=== PATIENT | female | born 1995 | race Caucasian/White ===

== ENCOUNTER 2016-11-14 17:42 | Outpatient (CLI) | payer OTHER ==
[2016-11-14 18:12] LABS: APPEARANCE,URINE TURBID; BILIRUBIN,URINE NEGATIVE (NEGATIVE); GLUCOSE, URINE NEGATIVE (NEGATIVE); KETONES,URINE 80 mg/dL (NEGATIVE); LEUKOCYTE ESTERASE,URINE MODERATE (NEGATIVE); NITRITE,URINE NEGATIVE (NEGATIVE); PROTEIN,URINE 30 mg/dL (NEGATIVE); URINE SPECIFIC GRAVITY 1.013; UROBILINOGEN,URINE NEGATIVE mg/dL (<2.0)
[2016-11-14] MEDS ORDERED: HYDROXYZINE PAMOATE 50 MG CAPSULE PO PRN (18:27)
[2016-11-14 18:31] LABS: URINE BARBITURATES SCREEN NEGATIVE; URINE METHADONE SCREEN NEGATIVE; URINE OPIATES LOW NEGATIVE; URINE PHENCYCLIDINE SCREEN NEGATIVE
--- NOTE | 2016-11-14 20:00 | L&D Flow Sheet ---
LD Flowsheet Datetime Report Generated by CPN: 11/14/2016 20:00 Datetime: 11/14/2016 19:45 NBP Sys/Safia/Mean (mmHg): 119 (QS system process) : 76 (QS system process) : 94 (QS system process) Pulse: 77 (QS system process) LaborFlag: Antepartum (QS system process) Datetime: 11/14/2016 19:44 Pain Scale: 3 (Adrienne Mishra, SARTHAK) Pain Presence: Intermittent (MIRYAM Marie Pain Type: Contraction (Adrienne Mishra RN) Pain Location: Abdomen; Back (Adrienne Mishra RN) Pain Relief Measures: Comfort Measures (Adrienne Mishra RN) Pain Coping: Talking Through Contractions; Breathing Through Contractions (Adrienne Mishra RN) LaborFlag: Antepartum (QS system process) Datetime: 11/14/2016 19:38 Patient Care Comments: Patient arrived back on unit from walking. States contractions are stronger and more frequent. Monitors applied (Adrienne Mishra RN) Datetime: 11/14/2016 19:05 Communication Comments[facility] until 1930. Will return for repeat SVE at that point. (Adrienne Mishra RN) Datetime: 11/14/2016 18:32 NBP Sys/Safia/Mean (mmHg): 119 (QS system process) : 68 (QS system process) : 86 (QS system process) Pulse: 80 (QS system process) Respirations: 16 (Shereen Senior RN) Monitor Mode: External; Palpation (Shereen Senior RN) Frequency (min): 2-5 (Shereen Senior RN) Quality: Mild/Moderate (Shereen Senior RN) Duration (sec): 50-70 (Shereen Senior RN) Resting Tone (Palpate): Relaxed (Shereen Senior RN) Monitor Mode: External US (Shereen Senior RN) FHR Baseline Rate : 135 (Shereen Senior RN) Variability: Moderate 6-25 bpm (Shereen Senior RN) Accelerations: 15X15 (Shereen Senior RN) Decelerations: None (Shereen Senior RN) Comments: Monitors removed, up to ambulate (Shereen Senior RN) LaborFlag: Antepartum (QS system process) Datetime: 11/14/2016 18:24 Communication Comments: Dr Galvez on phone. Report including pt complaints, FHR, UC pattern, SVE. Plan of care discussed. May d/c home if SVE unchanged w/ vistaril 50mg PO x 1 dose. (Shereen Senior RN) Datetime: 11/14/2016 18:20 Frequency (min): 5 (Shereen Senior RN) Pain Scale: 2 (Shereen Senior RN) Pain Presence: Intermittent (Shereen Senior RN) Pain Type: Contraction (Shereen Senior RN) Pain Location: Abdomen; Back (Shereen Senior RN) Pain Goal: 2 (Shereen Senior RN) Pain Relief Measures: Comfort Measures (Shereen Senior RN) Pain Coping: Breathing Through Contractions (Shereen Senior RN) Vaginal Bleeding: None (Shereen Senior RN) Breath Sounds, Left: Clear and Equal (Shereen Senior RN) Breath Sounds, Right: Clear and Equal (Shereen Senior RN) Nausea/Vomiting: Denies (Shereen Senior RN) RUQ Epigastric Pain: Denies (Shereen Senior RN) Instructional Method: Verbal; Patient Instructed; Family/Support Person Instructed; Verbalized Understanding (Shereen Senior RN) Plan of Care: Plan of Care Discussed (Shereen Senior RN) Unit Routine: [place] to Room; Call Vergara; Bed; Unit Personnel; Handwashing; Monitoring (Shereen Senior RN) LaborFlag: Antepartum (QS system process) Datetime: 11/14/2016 18:09 Dilatation (cm): 2.5 (Shereen Senior RN) Effacement (%): 90 (Shereen Senior, RN) Station: -2 (Shereen Senior, RN) Exam by: Sulma Senior RN (Shereen Senior, RN) Membrane Status: Bulging (Shereen Senior RN) Vaginal Bleeding: Normal Show (Shereen Senior, RN) Cervix, Consistency: Soft (Shereen Senior, RN) Cervix, Position: Anterior (Shereen Senior, RN) Datetime: 11/14/2016 18:02 NBP Sys/Safia/Mean (mmHg): 123 (QS system process) : 82 (QS system process) : 97 (QS system process) Pulse: 75 (QS system process) Respirations: 16 (Shereen Senior RN) Temperature (F): 97.9 (Shereen Senior RN) Temperature (C): 36.6 (QS system process) Temperature Route: Oral (Shereen Senior, SARTHAK) LaborFlag: Antepartum (QS system process) Datetime: 11/14/2016 18:00 Stage of : Antepartum (Shereen Senior RN)
[2016-11-14] MEDS ORDERED: ZOLPIDEM TARTRATE 5 MG TABLET PO ONE (20:03)
[2016-11-14] MEDS ORDERED: ZOLPIDEM TARTRATE 5 MG TABLET ONE (20:05)
== END 2016-11-14 20:12 | disposition home or self-care (01) ==
LOC: LC 17:42
PROVIDERS: ATTEND Specialist
PROC: 4A1HXCZ Monitoring of Products of Conception, Cardiac Rate, External Approach (ICD-10-PCS; principal; 2016-11-14)
DX: O47.1 False labor at or after 37 completed weeks of gestation (principal); Z3A.40 40 weeks gestation of pregnancy
CPT/HCPCS: 59025; 80307; 81005

== ENCOUNTER 2016-11-15 08:22 | Inpatient (IN) | payer OTHER ==
--- NOTE | 2016-11-15 08:31 | Non Stress Test Report ---
Non Stress Test Datetime Report Generated by CPN: 11/15/2016 08:30 DEMOGRAPHIC Test Number: 1 EGA NST: 40.6 INDICATION Indication for Study: Ordered by Provider VITAL SIGNS Temperature - NST: 97.9 Pulse - NST: 77 RESP - NST: 16 NBPSYS NST: 119 NBPDIA NST: 76 URINE RESULTS Urine Protein, NST: Negative Urine Ketones - NST: Negative Urine Glucose - NST: Negative Urine Blood - NST: Negative MONITORING Monitor Explained: Monitor Explained; Test Explained; Patient Verbalized Understanding Time on Monitor: 11/14/2016 19:37 Time off Monitor: 11/14/2016 20:00 NST Duration: 23 NST INTERVENTIONS NST Interventions: PO Hydration BABY A: [id number] BABY A Movement : Present Contraction Frequency : 1.5-3 FHR Baseline : 140 Accelerations : 15X15 Decelerations : None Variability : Moderate 6-25bpm NST Review: Meets Criteria for Reactive NST NST Review and Verified By : B. Ring RN NST Results: Reactive NST REPORT Report Trigger: Send Report
--- NOTE | 2016-11-15 08:54 | Non Stress Test Report ---
Non Stress Test Datetime Report Generated by CPN: 11/15/2016 08:53 DEMOGRAPHIC Test Number: 2 EGA NST: 41.0 INDICATION Indication for Study: Ordered by Provider Indication for Study (NST) Other: Contractions MONITORING Monitor Explained: Monitor Explained; Test Explained; Patient Verbalized Understanding Time on Monitor: 11/15/2016 08:36 Time off Monitor: 11/15/2016 08:56 NST Duration: 20 NST INTERVENTIONS NST Interventions: None Physician Notified NST: Dr Grant BABY A Movement : Present Contraction Frequency : 2 FHR Baseline : 135 Accelerations : 15X15 Decelerations : None Variability : Moderate 6-25bpm Variability : Moderate 6-25bpm NST Review: Meets Criteria for Reactive NST NST Review and Verified By : Stuart Mcclelland RN NST Results: Reactive NST REPORT Report Trigger: Send Report
[2016-11-15 09:16] LABS: APPEARANCE,URINE SLIGHTLY-CLOUDY; BILIRUBIN,URINE NEGATIVE (NEGATIVE); GLUCOSE, URINE NEGATIVE (NEGATIVE); KETONES,URINE 80 mg/dL (NEGATIVE); LEUKOCYTE ESTERASE,URINE TRACE (NEGATIVE); NITRITE,URINE NEGATIVE (NEGATIVE); PROTEIN,URINE 30 mg/dL (NEGATIVE); URINE SPECIFIC GRAVITY 1.015; UROBILINOGEN,URINE NEGATIVE mg/dL (<2.0)
[2016-11-15] MEDS ORDERED: NALBUPHINE HCL INJ 10 MG/1 ML AMPULE INJ ONE (09:25)
[2016-11-15] MEDS ORDERED: PROMETHAZINE HCL INJ 50 MG/1 ML VIAL IM ONE (09:27)
[2016-11-15 09:37] LABS: URINE BARBITURATES SCREEN NEGATIVE; URINE METHADONE SCREEN NEGATIVE; URINE OPIATES LOW NEGATIVE; URINE PHENCYCLIDINE SCREEN NEGATIVE
--- NOTE | 2016-11-15 10:01 | L&D Flow Sheet ---
LD Flowsheet Datetime Report Generated by CPN: 11/15/2016 10:00 Datetime: 11/15/2016 08:56 Monitor Mode: External (Janet Mcclelland RN) Frequency (min): 2-3 (Janet Mcclelland RN) Frequency (min): 2-3 (Shereen Senior RN) Quality: Mild/Moderate (Janet Mcclelland RN) Duration (sec): 50-100 (Janet Mcclelland RN) Resting Tone (Palpate): Relaxed (Janet Mcclelland RN) Monitor Mode: External US (Janet Mcclelland RN) FHR Baseline Rate : 140 (Janet Mcclelland RN) Variability: Moderate 6-25 bpm (Janet Mcclelland RN) Accelerations: 15X15 (Janet Mcclelland RN) Decelerations: None (Janet Mcclelland RN) Comments: Monitors removed (Shereen Senior RN) Pain Scale: 4 (Shereen Senior RN) Pain Presence: Intermittent (Shereen Parrish, RN) Pain Type: Contraction (Shereen Senior RN) Pain Location: Abdomen; Back (Shereen Senoir, RN) Pain Goal: 2 (Shereen Senior RN) Pain Relief Measures: Comfort Measures (Shereen Senior RN) Pain Coping: Breathing Through Contractions (Shereen Senior RN) Vaginal Bleeding: Small (Shereen Senior RN) Level of Consciousness: Fully Conscious (Shereen Senior RN) DTR's/Clonus: DTRs 1+; No Clonus (Shereen Senior RN) Headache: Denies (Shereen Senior RN) Breath Sounds, Left: Clear and Equal (Shereen Senior RN) Breath Sounds, Right: Clear and Equal (Shereen Senior, RN) Nausea/Vomiting: Present (Shereen Senior, RN) Patient Position/Activity: Birthing Ball (Shereen Senior, RN) Instructional Method: Verbal; Patient Instructed; Family/Support Person Instructed (Shereen Senior, RN) Plan of Care: Plan of Care Discussed; Labor (Shereen Senior, RN) Unit Routine: [place] to Room; Call Vergara; Bed; Unit Personnel; Handwashing; Monitoring (Shereen Senior, RN) Labor/Induction: Labor Stages (Shereen Senior RN) Pain Management: Comfort Measures (Shereen Senior RN) LaborFlag: Antepartum (QS system process) Datetime: 11/15/2016 08:37 Comments: Monitors applied, explained to pt. (Belinda Jennings, SARTHAK) Dilatation (cm): 2.5 (Belinda Jennings RN) Effacement (%): 100 (Belinda Jennings RN) Station: -2 (Belinda Jennings RN) Exam by: Michelle Jennings RN (Belinda Jennings RN) Cervix, Consistency: Soft (Belinda Jennings RN) Cervix, Position: Midposition (Belinda Jennings RN)
[2016-11-15] MEDS ORDERED: RINGERS SOLUTION,LACTATED 1,000 ML IV PRN (10:02)
[2016-11-15] MEDS ORDERED: PROMETHAZINE HCL INJ 25 MG/1 ML VIAL ONE (10:12)
[2016-11-15] MEDS ORDERED: NALBUPHINE HCL INJ 10 MG/1 ML AMPULE ONE ×2 (10:12→10:21)
[2016-11-15 10:43] LABS: ABSOLUTE MONOCYTES (AUTO) 0.6 10^3/uL (0.1-1.4); ABSOLUTE NEUT (AUTO) 9.5 10^3/uL (1.7-8.2); BASOPHILS % (AUTO) 0.2 % (0-2); EOSINOPHILS % (AUTO) 0.1 % (0-6); HEMATOCRIT 35.4 % (36.0-47.0); HEMOGLOBIN 12.1 g/dL (12.0-15.5); HGB HCT DIFFERENCE 0.9; LYMPHOCYTES % (AUTO) 8.6 % (13-45); MEAN CORPUSCULAR HEMOGLOBIN 31.5 pg (27.0-33.4); MEAN CORPUSCULAR HGB CONC 34.1 g/dL (32.0-36.0); MEAN CORPUSCULAR VOLUME 93 fl (80-97); MONOCYTES % (AUTO) 5.4 % (3-13); RED BLOOD COUNT 3.83 10^6/uL (3.72-5.28); RED CELL DISTRIBUTION WIDTH 15.1 % (11.5-14.0); SEGMENTED NEUTROPHILS % (AUTO) 85.7 % (42-78)
--- NOTE | 2016-11-15 12:02 | L&D Flow Sheet ---
LD Flowsheet Datetime Report Generated by CPN: 11/15/2016 12:00 Datetime: 11/15/2016 11:30 Monitor Mode: External; Palpation (Belinda Jennings RN) Frequency (min): 3.5-6 (Belinda Jennings, RN) Quality: Mild/Moderate (Belinda Jennings, RN) Duration (sec): 60-90 (Belinda Jennings, RN) Resting Tone (Palpate): Relaxed (Belinda Jennings, RN) Monitor Mode: External US (Belinda Jennings, RN) FHR Baseline Rate : 120 (Belinda Jennings, RN) Variability: Moderate 6-25 bpm (Belinda Jennings, RN) Accelerations: 15X15 (Belinda Jennings, RN) Decelerations: None (Belinda Jennings, RN) Datetime: 11/15/2016 11:00 Monitor Mode: External; Palpation (Belinda Jennings, RN) Frequency (min): 4-6 (Belinda Jennings, RN) Quality: Mild/Moderate (Belinda Jennings, RN) Duration (sec): 60-80 (Belinda Jennings, RN) Resting Tone (Palpate): Relaxed (Belinda Jennings, RN) Monitor Mode: External US (Belinda Jennings, RN) FHR Baseline Rate : 130 (Belinda Jennings, RN) Variability: Moderate 6-25 bpm (Belinda Jennings, RN) Accelerations: 15X15 (Belinda Jennings, RN) Decelerations: None (Belinda Jennings, RN) Datetime: 11/15/2016 10:30 Monitor Mode: External; Palpation (Belinda Jennings, RN) Frequency (min): 2-4 (Belinda Jennings, RN) Quality: Mild/Moderate (Belinda Jennings, RN) Duration (sec): 60-80 (Belinda Jennings, RN) Resting Tone (Palpate): Relaxed (Belinda Jennings, RN) Monitor Mode: External US (Belinda Jennings, RN) FHR Baseline Rate : 140 (Belinda Jennings, RN) Variability: Moderate 6-25 bpm (Belinda Jennings, RN) Accelerations: 15X15 (Belinda Jennings, RN) Decelerations: None (Belinda Jennings, RN) Datetime: 11/15/2016 10:21 Analgesics/Sedatives: Nubain (mg) @ 10 mg IV (Belinda Jennings RN) Antiemetics/Antacids: Phenergan IV (mg) @ 12.5 mg (Belinda Jennings RN) Datetime: 11/15/2016 10:11 NBP Sys/Safia/Mean (mmHg): 120 (QS system process) : 74 (QS system process) : 91 (QS system process) Pulse: 80 (QS system process) LaborFlag: Antepartum (QS system process)
[2016-11-15] MEDS ORDERED: FENTANYL CITRATE INJ/PF 100 MCG/2 ML AMPUL ONE (12:26)
[2016-11-15] MEDS ORDERED: BUPIVACAINE HCL 0.25 % INJ/PF (2.5 MG/1 ML) 30 ML VIAL ONE (12:27)
[2016-11-15] MEDS ORDERED: PHENYLEPHRINE HCL INJ/PF 10 MG/1 ML SDV ONE (12:27)
[2016-11-15] MEDS ORDERED: EPHEDRINE SULFATE INJ 50 MG/1 ML AMPULE ONE (12:27)
[2016-11-15] MEDS ORDERED: FENTANYL/BUPIVACAINE/NS/PF 200 MCG/100 ML RTUINJ EPI ONE (12:27)
[2016-11-15] MEDS ORDERED: FENTANYL/BUPIVACAINE/NS/PF 100 ML EPI PRN (12:30)
[2016-11-15] MEDS ORDERED: BUPIVACAINE HCL 0.25 % INJ/PF (2.5 MG/1 ML) 30 ML VIAL INFIL ONE (12:30)
--- NOTE | 2016-11-15 14:01 | L&D Flow Sheet ---
LD Flowsheet Datetime Report Generated by CPN: 11/15/2016 14:00 Datetime: 11/15/2016 13:58 NBP Sys/Safia/Mean (mmHg): 102 (QS system process) : 60 (QS system process) : 76 (QS system process) Pulse: 84 (QS system process) LaborFlag: Antepartum (QS system process) Datetime: 11/15/2016 13:55 NBP Sys/Safia/Mean (mmHg): 100 (QS system process) : 63 (QS system process) : 74 (QS system process) Pulse: 101 (QS system process) LaborFlag: Antepartum (QS system process) Datetime: 11/15/2016 13:50 NBP Sys/Safia/Mean (mmHg): 99 (QS system process) : 59 (QS system process) : 75 (QS system process) Pulse: 87 (QS system process) LaborFlag: Antepartum (QS system process) Datetime: 11/15/2016 13:44 NBP Sys/Safia/Mean (mmHg): 104 (QS system process) : 56 (QS system process) : 72 (QS system process) Pulse: 88 (QS system process) LaborFlag: Antepartum (QS system process) Datetime: 11/15/2016 13:38 NBP Sys/Safia/Mean (mmHg): 100 (QS system process) : 59 (QS system process) : 76 (QS system process) Pulse: 93 (QS system process) LaborFlag: Antepartum (QS system process) Datetime: 11/15/2016 13:33 NBP Sys/Safia/Mean (mmHg): 95 (QS system process) : 52 (QS system process) : 66 (QS system process) Pulse: 104 (QS system process) LaborFlag: Antepartum (QS system process) Datetime: 11/15/2016 13:30 NBP Sys/Safia/Mean (mmHg): 86 (QS system process) : 49 (QS system process) : 65 (QS system process) Pulse: 105 (QS system process) LaborFlag: Antepartum (QS system process) Datetime: 11/15/2016 13:23 NBP Sys/Safia/Mean (mmHg): 106 (QS system process) : 59 (QS system process) : 77 (QS system process) Pulse: 110 (QS system process) LaborFlag: Antepartum (QS system process) Datetime: 11/15/2016 13:21 NBP Sys/Safia/Mean (mmHg): 102 (QS system process) : 59 (QS system process) : 76 (QS system process) Pulse: 105 (QS system process) LaborFlag: Antepartum (QS system process) Datetime: 11/15/2016 13:20 Patient Care Comments: Pt. supine after epidural. (Belinda Jennings, RN) Datetime: 11/15/2016 13:19 NBP Sys/Safia/Mean (mmHg): 109 (QS system process) : 62 (QS system process) : 80 (QS system process) Pulse: 116 (QS system process) LaborFlag: Antepartum (QS system process) Datetime: 11/15/2016 13:18 Epidural Procedure Other: Pump Started (Belinda Jennings, RN) Datetime: 11/15/2016 13:17 NBP Sys/Safia/Mean (mmHg): 132 (QS system process) : 84 (QS system process) : 100 (QS system process) Pulse: 104 (QS system process) Epidural Procedure: Loading Dose (Belinda Jennings RN) LaborFlag: Antepartum (QS system process) Datetime: 11/15/2016 13:15 NBP Sys/Safia/Mean (mmHg): 135 (QS system process) : 77 (QS system process) : 101 (QS system process) Pulse: 83 (QS system process) LaborFlag: Antepartum (QS system process) Datetime: 11/15/2016 13:13 Pulse: 93 (QS system process) SpO2 (%): 99 (QS system process) Epidural Procedure: Test Dose (Janet Mcclelland RN) LaborFlag: Antepartum (QS system process) Datetime: 11/15/2016 13:12 Epidural Procedure: Cath Placed (Belinda Jennings, RN) Datetime: 11/15/2016 13:09 Procedure Verify: Correct Patient Identity; Accurate Procedure Consent Form; Agreement on Procedure to be Done; Correct Patient Position (Janet Mcclelland RN) Anesthesia Plans: Epidural (Janet Mcclelland RN) Epidural Positioning: Sitting (Janet Mcclelland RN) Anesthesia Comments: Dr. Jama at bedside (Janet Mcclelland RN) Datetime: 11/15/2016 13:08 Pulse: 92 (QS system process) SpO2 (%): 99 (QS system process) LaborFlag: Antepartum (QS system process) Datetime: 11/15/2016 13:04 IV/Blood Work: New IV Bag Hung (Janet Marlatt, RN) Patient Care Comments: patient sitting up for epidural (Janet Marlatt, RN) Datetime: 11/15/2016 12:20 IV/Blood Work: IV Bolus Started (Belinda Jennings, RN) Datetime: 11/15/2016 12:10 I/O Interventions: Up to BR (Belinda Jennings, RN) Datetime: 11/15/2016 12:05 Patient Position/Activity: Left Lateral (Belinda Jennings, RN) Datetime: 11/15/2016 12:04 Communication: RN at Bedside (Belinda Jennings RN) Datetime: 11/15/2016 12:00 Monitor Mode: External; Palpation (Belinda Jennings, RN) Frequency (min): 2-4 (Belinda Jennings, RN) Quality: Mild/Moderate (Belinda Jennings RN) Duration (sec): 60-90 (Belinda Jennings RN) Resting Tone (Palpate): Relaxed (Belinda Jennings RN) Monitor Mode: External US (Belinda Jennings RN) FHR Baseline Rate : 120 (Belinda Jennings RN) Variability: Moderate 6-25 bpm (Belinda Jennings RN) Accelerations: 15X15 (Belinda Jennings RN) Decelerations: None (Belinda Jennings RN)
--- NOTE | 2016-11-15 16:01 | L&D Flow Sheet ---
LD Flowsheet Datetime Report Generated by CPN: 11/15/2016 16:00 Datetime: 11/15/2016 15:50 NBP Sys/Safia/Mean (mmHg): 107 (QS system process) : 65 (QS system process) : 81 (QS system process) Pulse: 87 (QS system process) LaborFlag: Labor (QS system process) Datetime: 11/15/2016 15:45 Monitor Mode: External; Palpation (Belinda Jennings RN) Frequency (min): 2-5 (Belinda Jennings, RN) Quality: Moderate (Belinda Jennings, RN) Duration (sec): 60-90 (Belinda Jennings, RN) Resting Tone (Palpate): Relaxed (Belinda Jennings, RN) Monitor Mode: External US (Belinda Jennings, RN) FHR Baseline Rate : 135 (Belinda Jennings, RN) Variability: Moderate 6-25 bpm (Belindahalley Freitason, RN) Accelerations: 15X15 (Belinda Jennings, RN) Decelerations: None (Belinda Jeninngs, RN) Datetime: 11/15/2016 15:35 NBP Sys/Safia/Mean (mmHg): 111 (QS system process) : 64 (QS system process) : 81 (QS system process) Pulse: 78 (QS system process) LaborFlag: Labor (QS system process) Datetime: 11/15/2016 15:30 Monitor Mode: External; Palpation (Belinda Jennings, RN) Frequency (min): 6-7 (Belinda Jennings, RN) Quality: Moderate (Belinda Jennings, RN) Duration (sec): 80-110 (Belinda Jennings RN) Resting Tone (Palpate): Relaxed (Belinda Jennings RN) Monitor Mode: External US (Belinda Jennings RN) FHR Baseline Rate : 130 (Belinda Jennings RN) Variability: Minimal - Undetectable to <=5 bpm (Belinda Jennings, RN) Accelerations: 15X15 (Belinda Jennings, RN) Decelerations: Late (Belinda Jennings, RN) Datetime: 11/15/2016 15:20 NBP Sys/Safia/Mean (mmHg): 110 (QS system process) : 67 (QS system process) : 82 (QS system process) Pulse: 71 (QS system process) LaborFlag: Labor (QS system process) Datetime: 11/15/2016 15:15 Monitor Mode: External; Palpation (Shereen Senior RN) Frequency (min): 2-5 (Shereen Senior RN) Quality: Moderate (Shereen Senior RN) Duration (sec): 50-80 (Shereen Senior RN) Resting Tone (Palpate): Relaxed (Shereen Senior RN) Monitor Mode: External US (Shereen Senior RN) FHR Baseline Rate : 140 (Shereen Senior RN) Variability: Moderate 6-25 bpm (Shereen Senior RN) Decelerations: None (Shereen Senior RN) Patient Position/Activity: Right Lateral; Peanut Ball (Hafsa Soto RN) Datetime: 11/15/2016 15:05 NBP Sys/Safia/Mean (mmHg): 111 (QS system process) : 57 (QS system process) : 77 (QS system process) Pulse: 85 (QS system process) LaborFlag: Labor (QS system process) Datetime: 11/15/2016 15:00 Monitor Mode: External; Palpation (Shereen Senior RN) Frequency (min): 4-5 (Shereen Senior RN) Quality: Mild (Shereen Senior RN) Duration (sec): 50-70 (Shereen Senior RN) Resting Tone (Palpate): Relaxed (Shereen Senior RN) Monitor Mode: External US (Shereen Senior RN) FHR Baseline Rate : 140 (Shereen Parrish, RN) Variability: Moderate 6-25 bpm (Shereen Parrish, RN) Accelerations: 10X10 (Shereen Parrish, RN) Decelerations: None (Shereen Senior, RN) Datetime: 11/15/2016 14:56 Stage of : Labor (Shereen Parrish, RN) Datetime: 11/15/2016 14:49 NBP Sys/Safia/Mean (mmHg): 94 (QS system process) : 52 (QS system process) : 67 (QS system process) Pulse: 82 (QS system process) LaborFlag: Antepartum (QS system process) Datetime: 11/15/2016 14:45 Monitor Mode: External; Palpation (Shereen Parrish, RN) Frequency (min): 5-6 (Shereen Parrish, RN) Quality: Moderate (Shereen Parrish, RN) Duration (sec): 50-70 (Shereen Parrish, RN) Resting Tone (Palpate): Relaxed (Shereen Parrish, RN) Monitor Mode: External US (Shereen Parrish, RN) FHR Baseline Rate : 140 (Shereen Parrish, RN) Variability: Moderate 6-25 bpm (Shereen Parrish, RN) Decelerations: None (Shereen Parrish, RN) Datetime: 11/15/2016 14:34 NBP Sys/Safia/Mean (mmHg): 97 (QS system process) : 56 (QS system process) : 71 (QS system process) Pulse: 70 (QS system process) LaborFlag: Antepartum (QS system process) Datetime: 11/15/2016 14:30 Monitor Mode: External; Palpation (Shereen Parrish, RN) Frequency (min): 2-4 (Shereen Senior RN) Quality: Moderate (Shereen Senior, RN) Duration (sec): 50-70 (Shereen Senior RN) Resting Tone (Palpate): Relaxed (Shereen Senior RN) Monitor Mode: External US (Shereen Senior RN) FHR Baseline Rate : 140 (Shereen Senior, RN) Variability: Moderate 6-25 bpm (Shereen Senior RN) Decelerations: None (Shereen Senior RN) Datetime: 11/15/2016 14:19 NBP Sys/Safia/Mean (mmHg): 98 (QS system process) : 59 (QS system process) : 74 (QS system process) Pulse: 83 (QS system process) LaborFlag: Antepartum (QS system process) Datetime: 11/15/2016 14:15 Monitor Mode: External; Palpation (Shereen Senior RN) Frequency (min): 2-3 (Shereen Senior RN) Quality: Moderate (Shereen Senior RN) Duration (sec): 50-70 (Shereen Senior RN) Resting Tone (Palpate): Relaxed (Shereen Senior RN) Monitor Mode: External US (Shereen Senior RN) FHR Baseline Rate : 140 (Shereen Senior RN) Variability: Moderate 6-25 bpm (Shereen Senior RN) Accelerations: 10X10 (Shreeen Senior RN) Decelerations: None (Shereen Senior RN) Datetime: 11/15/2016 14:07 Dilatation (cm): 5.0 (Shereen Senior RN) Effacement (%): 100 (Shereen Senior RN) Station: -1 (Shereen Senior RN) Exam by: Dr Grant (Shereen Senior RN) Membrane Status: Ruptured (Shereen Senior RN) Membranes Ruptured Date/Time: 11/15/2016 14:07 (Shereen Senior RN) Membranes Rupture Method: Spontaneous (Shereen Senior RN) Amniotic Fluid Color: Clear (Shereen Senior RN) Amniotic Fluid Amount: Moderate (Shereen Senior RN) Amniotic Fluid Odor: Normal (Shereen Senior RN) Vaginal Bleeding: Normal Show (Shereen Senior RN) Cervix, Consistency: Soft (Shereen Senior RN) Cervix, Position: Anterior (Shereen Senior RN) Datetime: 11/15/2016 14:03 NBP Sys/Safia/Mean (mmHg): 113 (QS system process) : 71 (QS system process) : 86 (QS system process) Pulse: 89 (QS system process) LaborFlag: Antepartum (QS system process)
[2016-11-15] MEDS ORDERED: MAG HYDROX/AL HYDROX/SIMETH SUSP 30 ML UDCUP ONE (16:23)
[2016-11-15] MEDS ORDERED: OXYTOCIN/NORMAL SALINE 20 UNIT/1,000 ML RTUINJ ONE (16:23)
--- NOTE | 2016-11-15 18:01 | L&D Flow Sheet ---
LD Flowsheet Datetime Report Generated by CPN: 11/15/2016 18:00 Datetime: 11/15/2016 17:48 Temperature (F): 99.1 (Belinda Jennings, RN) Temperature (C): 37.3 (QS system process) LaborFlag: Labor (QS system process) Datetime: 11/15/2016 17:44 Pitocin (milliunit): Pitocin Increased to (milliunits) @ 8 (Belindahalley Jennings, RN) Datetime: 11/15/2016 17:35 NBP Sys/Safia/Mean (mmHg): 118 (QS system process) : 73 (QS system process) : 89 (QS system process) Pulse: 88 (QS system process) LaborFlag: Labor (QS system process) Datetime: 11/15/2016:19 NBP Sys/Safia/Mean (mmHg): 115 (QS system process) : 59 (QS system process) : 81 (QS system process) Pulse: 86 (QS system process) LaborFlag: Labor (QS system process) Datetime: 11/15/2016 17:17 Monitor Interventions for UA: [place] Adjusted (Misti Bolivar, RN) Datetime: 11/15/2016 17:16 Patient Position/Activity: Right Lateral; Peanut Ball (Shereen Senior RN) Datetime: 11/15/2016 17:15 Monitor Mode: External; Palpation (Shereen Senior RN) Frequency (min): 4-5 (Shereen Senior RN) Quality: Mild/Moderate (Shereen Senior RN) Duration (sec): 50-70 (Shereen Senior RN) Resting Tone (Palpate): Relaxed (Shereen Senior RN) Monitor Mode: External US (Shereen Senior RN) FHR Baseline Rate : 140 (Shereen Senior RN) Variability: Minimal - Undetectable to <=5 bpm (Shereen Senior RN) Decelerations: None (Shereen Senior RN) Pitocin (milliunit): Pitocin Increased to (milliunits) @ 6 (Shereen Senior RN) Datetime: 11/15/2016 17:04 NBP Sys/Safia/Mean (mmHg): 96 (QS system process) : 55 (QS system process) : 70 (QS system process) Pulse: 71 (QS system process) LaborFlag: Labor (QS system process) Datetime: 11/15/2016 17:00 Monitor Mode: External; Palpation (Shereen Senior RN) Frequency (min): 4-5 (Shereen Senior RN) Quality: Mild/Moderate (Shereen Senior RN) Duration (sec): 50-80 (Shereen Senior RN) Resting Tone (Palpate): Relaxed (Shereen Senior RN) Monitor Mode: External US (Shereen Senior RN) FHR Baseline Rate : 140 (Shereen Senior RN) Variability: Minimal - Undetectable to <=5 bpm (Shereen Senior RN) Decelerations: None (Shereen Senior RN) Pitocin (milliunit): Pitocin Remains (milliunits) @ 4 (Shereen Senior RN) Datetime: 11/15/2016 16:49 NBP Sys/Safia/Mean (mmHg): 97 (QS system process) : 54 (QS system process) : 70 (QS system process) Pulse: 76 (QS system process) LaborFlag: Labor (QS system process) Datetime: 11/15/2016 16:48 Pitocin (milliunit): Pitocin Increased to (milliunits) @ 4 (Belindahalley Jennings, RN) Datetime: 11/15/2016 16:45 Monitor Mode: External; Palpation (Shereenhillary Senior RN) Frequency (min): 4-6 (Shereen Senior RN) Quality: Mild/Moderate (Shereen Senior RN) Duration (sec): 50-70 (Shereen Senior RN) Resting Tone (Palpate): Relaxed (Shereen Senior RN) Monitor Mode: External US (Shereen Senior RN) FHR Baseline Rate : 140 (Shereen Senior RN) Variability: Moderate 6-25 bpm (Shereen Senior RN) Accelerations: 10X10 (Shereen Senior RN) Decelerations: None (Shereen Senior RN) Pitocin (milliunit): Pitocin Remains (milliunits) @ 4 (Shereen Senior RN) Datetime: 11/15/2016 16:35 NBP Sys/Safia/Mean (mmHg): 103 (QS system process) : 59 (QS system process) : 77 (QS system process) Pulse: 83 (QS system process) LaborFlag: Labor (QS system process) Datetime: 11/15/2016 16:33 Patient Position/Activity: Left Lateral; Peanut Ball (Shereen Parrish, RN) Datetime: 11/15/2016 16:30 Monitor Mode: External; Palpation (Belinda Jennings, SARTHAK) Frequency (min): 4-6 (Belinda Jennings, RN) Quality: Mild/Moderate (Belinda Jennings, RN) Duration (sec): 50-70 (Belinda Jennings, RN) Resting Tone (Palpate): Relaxed (Belinda Jennings, RN) Monitor Mode: External US (Belinda Jennings, RN) FHR Baseline Rate : 135 (Belinda Jennings, RN) Variability: Moderate 6-25 bpm (Belinda Jennings, RN) Accelerations: 15X15 (Belinda Jennings, RN) Decelerations: None (Belinda Jennings, RN) Pitocin (milliunit): Pitocin Started (milliunits) @ 2 (Belinda Jennings, RN) Datetime: 11/15/2016 16:19 NBP Sys/Safia/Mean (mmHg): 110 (QS system process) : 63 (QS system process) : 80 (QS system process) Pulse: 112 (QS system process) LaborFlag: Labor (QS system process) Datetime: 11/15/2016 16:15 Monitor Mode: External; Palpation (Belinda Jennings RN) Frequency (min): 5-6 (Belinda Jennings RN) Quality: Mild/Moderate (Belinda Jennings, RN) Duration (sec): 50-70 (Belinda Jennings, RN) Resting Tone (Palpate): Relaxed (Belinda Jennings, RN) Monitor Mode: External US (Belinda Jennings, RN) FHR Baseline Rate : 135 (Belinda Jennings, RN) Variability: Minimal - Undetectable to <=5 bpm (Belinda Jennings, RN) Accelerations: 10X10 (Belindahalley Jennings, RN) Decelerations: None (Belinda Michaela, RN) Datetime: 11/15/2016 16:04 NBP Sys/Safia/Mean (mmHg): 104 (QS system process) : 61 (QS system process) : 78 (QS system process) Pulse: 90 (QS system process) Temperature (F): 98.6 (Belinda Jennings RN) Temperature (C): 37.0 (QS system process) Temperature Route: Oral (Belinda Jennings RN) LaborFlag: Labor (QS system process) Datetime: 11/15/2016 16:00 Monitor Mode: External; Palpation (Belinda Jennings RN) Frequency (min): 4-5 (Belinda Jennings RN) Quality: Mild/Moderate (Belinda Jennings RN) Duration (sec): 50-70 (Belinda Jennings RN) Resting Tone (Palpate): Relaxed (Belinda Jennings RN) Monitor Mode: External US (Belinda Jennings RN) FHR Baseline Rate : 135 (Belinda Jennings RN) Variability: Moderate 6-25 bpm (Belinda Jennings RN) Accelerations: 15X15 (Belinda Jennings RN) Decelerations: None (Belinda Jennings RN)
--- NOTE | 2016-11-15 20:01 | L&D Flow Sheet ---
LD Flowsheet Datetime Report Generated by CPN: 11/15/2016 20:00 Datetime: 11/15/2016 19:47 Patient Position/Activity: [place]ow[place] (Virginia Ring, RN) Patient Care Comments: Pt states feeling the need to have a bowel movement. Bedpan provided. (Virginia Ring, RN) Datetime: 11/15/2016 19:36 Pitocin (milliunit): Pitocin Increased to (milliunits) @ 14 (Virginia Ring, RN) Datetime: 11/15/2016 19:34 Communication: Provider Orders Received; Call/Page Placed to Provider (Virginia Salgado, RN) Communication Comments: Call placed to Dr. Grant. Report to include SVE, temperature, toco data. Orders received to continue to increase pitocin by 2 miliunits/min every 15 minutes for a maximum of 20 miliunits/min of until adequate labor is established. (Virginia Ring, RN) Datetime: 11/15/2016 19:32 Patient Position/Activity: Left Lateral; Peanut Ball (Virginia Ring, RN) Datetime: 11/15/2016 19:30 Dilatation (cm): 6.0 (Virginia Ring, RN) Effacement (%): 100 (Virginia Ring, RN) Station: 0 (Virginia Ring, RN) Exam by: Michelle Jennings RN (Virginia Ring, RN) Cervix, Consistency: Soft (Virginia Ring, RN) Vaginal Exam Comments: Molding noted (Virginia Ring, RN) Datetime: 11/15/2016 19:28 NBP Sys/Safia/Mean (mmHg): 120 (QS system process) : 60 (QS system process) : 83 (QS system process) Pulse: 95 (QS system process) LaborFlag: Labor (QS system process) Datetime: 11/15/2016 19:27 Patient Position/Activity: Left Lateral; Peanut Ball (Virginia Ring, RN) Datetime: 11/15/2016 19:20 Respirations: 18 (Virginia Ring, RN) Temperature (F): 99.8 (Virginia Ring, RN) Temperature (C): 37.7 (QS system process) Temperature Route: Oral (Virginia Ring, RN) Level of Consciousness: Fully Conscious (Virginia Ring, RN) DTR's/Clonus: DTRs 2+; No Clonus (Virginia Ring, RN) Headache: Denies (Virginia Ring, RN) Breath Sounds, Left: Clear and Equal (Virginia Ring, RN) Breath Sounds, Right: Clear and Equal (Virginia Ring, RN) Nausea/Vomiting: Denies (Virginia Ring, RN) RUQ Epigastric Pain: Denies (Virginia Ring, RN) Pitocin (milliunit): Pitocin Remains (milliunits) @ (Annotations: 12) (Virginia Ring, RN) LaborFlag: Labor (QS system process) Datetime: 11/15/2016 19:00 Monitor Mode: External; Palpation (Belinda Jennings RN) Frequency (min): 2-3.5 (Belinda Jennings RN) Quality: Moderate (Belinda Jennings RN) Duration (sec): 60-90 (Belinda Jennings RN) Resting Tone (Palpate): Relaxed (Belinda Jennings, RN) Monitor Mode: External US (Belinda Jennings, RN) FHR Baseline Rate : 140 (Belinda Freitason, RN) Variability: Moderate 6-25 bpm (Belinda Jennings, RN) Accelerations: 15X15 (Belinda Jennings, RN) Decelerations: None (Belinda Freitason, RN) Pitocin (milliunit): Pitocin Remains (milliunits) @ 12 (Belindahalley Freitason, RN) Datetime: 11/15/2016 18:45 Monitor Mode: External; Palpation (Belinda Jennings, RN) Frequency (min): 2-3 (Belinda Jennings, RN) Quality: Moderate (Belinda Jennings, RN) Duration (sec): 60-90 (Belinda Jennings, RN) Resting Tone (Palpate): Relaxed (Belinda Jennings, RN) Monitor Mode: External US (Belinda Jennings, RN) FHR Baseline Rate : 140 (Belinda Jennings, RN) Variability: Moderate 6-25 bpm (Belinda Jennings, RN) Accelerations: 15X15 (Belindahalley Freitason, RN) Decelerations: Early (Belinda Jennings, RN) Pitocin (milliunit): Pitocin Increased to (milliunits) @ (Annotations: 12 ) (Belinda Freitason, RN) Datetime: 11/15/2016 18:40 Monitor Interventions for UA: [place] Adjusted (Belinda Jennings, RN) Contraction Comments: TOCO referenced. (Belinda Jennings, RN) Datetime: 11/15/2016 18:37 Patient Position/Activity: Hands-Knees (Belinda Jennings, RN) Datetime: 11/15/2016 18:35 NBP Sys/Safia/Mean (mmHg): 113 (QS system process) : 64 (QS system process) : 82 (QS system process) Pulse: 81 (QS system process) LaborFlag: Labor (QS system process) Datetime: 11/15/2016 18:30 Monitor Mode: External; Palpation (Belinda Jennings, RN) Frequency (min): 2-3 (Belinda Jennings, RN) Quality: Moderate (Belinda Jennings, RN) Duration (sec): 60-80 (Belinda Jennings, RN) Resting Tone (Palpate): Relaxed (Belinda Jennings, RN) Monitor Mode: External US (Belinda Jennings, RN) FHR Baseline Rate : 140 (Belinda Jennings, RN) Variability: Moderate 6-25 bpm (Belinda Jennings, RN) Accelerations: 15X15 (Belinda Jennings, RN) Decelerations: None (Belinda Jennings, RN) Pitocin (milliunit): Pitocin Increased to (milliunits) @ (Annotations: 10) (Belinda Jennings, RN) Datetime: 11/15/2016 18:20 NBP Sys/Safia/Mean (mmHg): 106 (QS system process) : 58 (QS system process) : 75 (QS system process) Pulse: 78 (QS system process) LaborFlag: Labor (QS system process) Datetime: 11/15/2016 18:15 Monitor Mode: External; Palpation (Belinda Jennings, RN) Frequency (min): 2-3 (Belinda Jennings, RN) Quality: Moderate (Belinda Michaela, RN) Duration (sec): 60-80 (Belinda Michaela, RN) Resting Tone (Palpate): Relaxed (Belinda Jennings, RN) Monitor Mode: External US (Belinda Jennings, RN) FHR Baseline Rate : 140 (Belinda Jennings, RN) Variability: Moderate 6-25 bpm (Belinda Michaela, RN) Accelerations: 15X15 (Belinda Michaela, RN) Decelerations: None (Belinda Jennings, RN) Pitocin (milliunit): Pitocin Remains (milliunits) @ (Annotations: 8) (Belinda Jennings, RN) Datetime: 11/15/2016 18:05 NBP Sys/Safia/Mean (mmHg): 114 (QS system process) : 61 (QS system process) : 82 (QS system process) Pulse: 88 (QS system process) LaborFlag: Labor (QS system process) Datetime: 11/15/2016 18:00 Monitor Mode: External; Palpation (Belinda Jennings RN) Frequency (min): 2-6 (Belinda Jennings RN) Quality: Moderate (Belinda Jennings RN) Duration (sec): 60-80 (Belinda Jennings RN) Resting Tone (Palpate): Relaxed (Belinda Jennings RN) Monitor Mode: External US (Belinda Jennings RN) FHR Baseline Rate : 140 (Belinda Jennings RN) Variability: Moderate 6-25 bpm (Belinda Jennings RN) Accelerations: 15X15 (Belinda Jennings RN) Decelerations: Variable (Belinda Jennings RN) Pitocin (milliunit): Pitocin Remains (milliunits) @ (Annotations: 8) (Belinda Jennings RN)
[2016-11-15] MEDS ORDERED: LIDOCAINE 2%/EPINEPHRINE INJ 20 ML VIAL ONE (20:48)
--- NOTE | 2016-11-15 22:01 | L&D Flow Sheet ---
LD Flowsheet Datetime Report Generated by CPN: 11/15/2016 22:00 Datetime: 11/15/2016 21:43 Pushing: Urge to Push (Virginia Ring, RN) Pushing Position: Pushing with Contractions; Pushing Left Side (Virginia Ring, RN) Datetime: 11/15/2016 21:33 Stage 2 Comments: pushing hands and knees (Virginia Ring, RN) Datetime: 11/15/2016 21:20 Pulse: 74 (QS system process) SpO2 (%): 88 (QS system process) LaborFlag: Labor (QS system process) Datetime: 11/15/2016 21:19 Pushing Position: Pushing Lithotomy (Virginia Ring, RN) Datetime: 11/15/2016 21:18 Pushing Position: Pushing with Contractions; Pushing Right Side (Virginia Ring, RN) Datetime: 11/15/2016 21:17 Pulse: 98 (QS system process) SpO2 (%): 100 (QS system process) LaborFlag: Labor (QS system process) Datetime: 11/15/2016 21:16 NBP Sys/Safia/Mean (mmHg): 116 (QS system process) : 57 (QS system process) : 82 (QS system process) Pulse: 72 (QS system process) LaborFlag: Labor (QS system process) Datetime: 11/15/2016 21:14 Pulse: 109 (QS system process) SpO2 (%): 92 (QS system process) Pushing Position: Pushing with Contractions; Pushing Left Side (Virginia Ring, RN) LaborFlag: Labor (QS system process) Datetime: 11/15/2016 21:12 Pulse: 76 (QS system process) SpO2 (%): 100 (QS system process) LaborFlag: Labor (QS system process) Datetime: 11/15/2016 21:11 Pushing: Coached on Pushing; Urge to Push (Virginia Ring, RN) Pushing Position: Pushing with Contractions; Pushing Lithotomy (Virginia Ring, RN) Datetime: 11/15/2016 21:09 Patient Position/Activity: Right Lateral (Virginia Ring, RN) Datetime: 11/15/2016 21:07 Comments: Pitocin halved (Virginia Ring, RN) Datetime: 11/15/2016 21:04 Patient Position/Activity: Left Lateral (Virginia Ring, RN) Datetime: 11/15/2016 21:03 Actions for Decelerations: Oxygen Applied (Virginia Ring, RN) Datetime: 11/15/2016 21:02 Actions for Decelerations: Side to Side; IV Bolus (Virginia Ring, RN) Datetime: 11/15/2016 20:58 Patient Care Comments: Catheter removed (Virginia Ring, RN) Datetime: 11/15/2016 20:55 Dilatation (cm): 10.0 (Virginia Ring, RN) Effacement (%): 100 (Virginia Ring, RN) Station: 0 (Virginia Ring, RN) Exam by: Dr. Grant (Virginia Ring, RN) Cervix, Consistency: Soft (Virginia Ring, RN) Datetime: 11/15/2016 20:53 Communication: RN at Bedside; Provider at Bedside (Virginia Ring, RN) Datetime: 11/15/2016 20:49 Pitocin (milliunit): Pitocin Increased to (milliunits) @ 18 (Virginia Ring, RN) Datetime: 11/15/2016 20:46 NBP Sys/Safia/Mean (mmHg): 122 (QS system process) : 59 (QS system process) : 81 (QS system process) Pulse: 93 (QS system process) LaborFlag: Labor (QS system process) Datetime: 11/15/2016 20:45 Anesthesia Comments: Call placed to anesthesia as pt is stating having increased pain. No level detected (Virginia Ring, RN) Datetime: 11/15/2016 20:30 NBP Sys/Safia/Mean (mmHg): 118 (QS system process) : 61 (QS system process) : 83 (QS system process) Pulse: 90 (QS system process) LaborFlag: Labor (QS system process) Datetime: 11/15/2016 20:29 Temperature (F): 99.2 (Virginia Ring, RN) Temperature (C): 37.3 (QS system process) Temperature Route: Oral (Virginia Ring, RN) LaborFlag: Labor (QS system process) Datetime: 11/15/2016 20:26 Pitocin (milliunit): Pitocin Increased to (milliunits) @ 16 (Vriginia Ring, RN) Datetime: 11/15/2016 20:18 Pain Assessment Comments: Pt agrees upon waiting for assessment from Dr. Grant to call anesthesia. (Virginia Ring, RN) LaborFlag: Labor (QS system process) Datetime: 11/15/2016 20:15 NBP Sys/Safia/Mean (mmHg): 117 (QS system process) : 74 (QS system process) : 87 (QS system process) Pulse: 98 (QS system process) LaborFlag: Labor (QS system process)
[2016-11-16] MEDS ORDERED: ZOLPIDEM TARTRATE 5 MG TABLET PO PRN (01:57)
[2016-11-16] MEDS ORDERED: MEASLES,MUMPS&RUBELLA VACC/PF 0.5 ML VIAL SUBCUT PRN (01:57)
[2016-11-16] MEDS ORDERED: OXYTOCIN/NORMAL SALINE 1,000 ML IV PRN (01:57)
[2016-11-16] MEDS ORDERED: DIPH/PERTUSS(ACELL)/TETANUS VAC/PF 0.5 ML SYR (>=10YO) IM PRN (01:57)
[2016-11-16] MEDS ORDERED: DIBUCAINE 1% OINTMENT 28 GM TP PRN (01:57)
[2016-11-16] MEDS ORDERED: BENZOCAINE/MENTHOL AEROSOL SPRAY 56 ML TOP PRN (01:57)
[2016-11-16] MEDS ORDERED: ACETAMINOPHEN WITH CODEINE #3 TABLET PO PRN ×2 (01:57)
--- NOTE | 2016-11-16 02:43 | Admission Physical ---
Datetime Report Generated by CPN: 11/16/2016 02:43 CURRENT ADMISSION Hx Assessment: The History has been Reviewed and is Current Chief Complaint: Uterine Contractions Indication for Induction: Not Applicable Admit Plan: Admit to Unit; Initiate Labor Protocol ALLERGIES Medication Allergies: No Medication Allergies: No Known Allergies (11/15/2016) Latex: No Latex Allergies Food Allergies: None Environmental Allergies: None OBSTETRICAL HISTORY EDC: 11/08/2016 00:00 : 1 Para: 0 Term: 0 : 0 SAB: 0 IAB: 0 Ectopic: 0 Livin Cesareans: 0 VBACs: 0 Multiple Births: 0 Gestational Diabetes: No Rh Sensitization: No Incompetent Cervix: No NANO: No Infertility: No ART Treatment: No Uterine Anomaly: No IUGR: No Hx Previous C/S: No Macrosomia: No Hx Loss/Stillborn: No PIH: No Hx : No Placenta Previa/Abruption: No Depression/PP Depression: No PTL/PROM: No Post Hemorrhage: No Current Procedures: Ultrasound; NST Obstetrical History Comments: G1 - Current - anemia SEE RECORDS Alcohol: No Marijuana : No Cocaine: No Other Illicit Drugs: No Cigarettes: Never Smoker. 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 Heart Disease: No Hosp/Surgery: No Autoimmune Disorder: No Anesthetic Complications: No Kidney Disease: No Abnormal Pap Smear: No Neuro/Epilepsy: No Psychiatric Disorders: No Other Medical Diseases: No Hepatitis/Liver Disease: No Significant Family History: No Varicosities/Phlebitis: No Trauma/Violence : No Thyroid Dysfunction: No INFECTIOUS HISTORY Gonorrhea: No Genital Herpes: No Chlamydia: No Tuberculosis: No Syphilis: No Hepatitis: No HIV/AIDS Exposure: No Rash or Viral Illness: No HPV: No PHYSICAL EXAM General: Normal HEENT: Deferred Neurologic: Deferred Thyroid: Deferred Heart: Normal Lungs: Normal Breast: Deferred Back: Deferred Abdomen: Normal Genitourinary Exam: Normal Extremities: Normal DTRs: Normal Pelvic Type: Adequate Vital Signs: Reviewed; Within Normal Limits MEMBRANES Membranes: Ruptured FETUS A EGA: 41.0 FHR- Baseline: 140 Variability: Moderate 6-25bpm Accelerations: 15X15 Decelerations: None FHR Category: Category I Admit Comment: Term labor. arom clear. epidural in place. gbs neg PLANS FOR LABOR AND DELIVERY Labor and Delivery: None Pain Management: Epidural Feeding Preference: Breast Benefit of Breast Feed Discussed: Yes Circumcision: N/A INFORMED CONSENT Signature: with User ID: [email or web address]
--- NOTE | 2016-11-16 04:29 | Delivery Summary ---
Del Sum A-C Datetime Report Generated by CPN: 11/16/2016 04:28 ADMISSION DATA Chief Complaint: Uterine Contractions Indication for Induction: Not Applicable Admission Impression: Term, Intrauterine ; Active Labor; Intact Membranes Admit Provider Comments: Term labor. arom clear. epidural in place. gbs neg DELIVERY PERSONNEL Delivery Doctor:: Sirisha Grant MD Labor and Delivery Nurse:: Virginia Salgado RNlaborer airport maintenance Nurse:: Shauna Alicia RN Parking Supervisor:: Adrienne Mishra RN Nursery Nurse:: Radha Gonzáles RN Nursery Nurse:: SARTHAK Matias Tech/FRENCH TUTOR: Cyndie Sne, ST MATERNAL INFORMATION Delivery Anesthesia: Epidural Medications After Delivery: Pitocin Bolus-Please Comment Meds After Delivery Comment: Pitocin 20 units/1000 mL NS bolus following delivery Estimated Blood Loss (ml): 350 Maternal Complications: None Provider Comments: over perineal lac w repair as above. live female to nursery for grunting/retracting. spontaneous intact placenta 3vc. no complications LABOR SUMMARY EDC: 11/08/2016 00:00 No. Babies in Womb: 1 Attempted: No Labor Anesthesia: Epidural LABOR INFORMATION Reason for Induction: Not Applicable Onset of Labor: 11/15/2016 14:07 Complete Dilatation: 11/15/2016 20:55 Oxytocin: Augmentation Group B Beta Strep: Negative Antibiotics # of Doses: 0 Antibiotics Time of Last Dose: n/a Steroids Given: None Reason Steroids Not Administered: Not Applicable MEMBRANES Membranes Rupture Method: Artificial Rupture of Membranes: 11/15/2016 14:07 Length of Rupture (hr): 9.78 Amniotic Fluid Color: Clear Amniotic Fluid Amount: Moderate Amniotic Fluid Odor: Normal STAGES OF LABOR Stage 1 hr: 6 Stage 1 min: 48 Stage 2 hr: 2 Stage 2 min: 59 Stage 3 hr: 0 Stage 3 min: 15 Total Time in Labor hr: 10 Total Time in Labor min: 2 VAGINAL DELIVERY Episiotomy: None Laceration Extension: Second Degree Laceration Type: Perineal Laceration Repair: Yes Laceration Repair Note: 2nd deg perineal lac with repair in usual fashion with 3-0 vicryl Sponge Count Correct: N/A Sharps Count Correct: N/A CSECTION DELIVERY Primary Indication: N/A Secondary Indication: N/A CSection Incidence: N/A Labor: N/A Elective: N/A CSection Incision: N/A BABY A INFORMATION Infant Delivery Date/Time: 11/15/2016 23:54 Method of Delivery: Vaginal Born in Route : No : N/A Forceps: N/A Vacuum Extraction: N/A Shoulder Dystocia : No PRESENTATION/POSITION BABY A Presentation: Cephalic Cephalic Presentation: Vertex Vertex Position: Left Occipital Anterior Breech Presentation: N/A PLACENTA INFORMATION BABY A Placenta Delivery Time : 11/16/2016 00:09 Placenta Method of Delivery: Spontaneous Placenta Status: Delivered SCORES BABY A Heart Rate 1 min: >100 bpm Resp Effort 1 min: Slow, Irregular Reflex Irritability 1 min: [place] Muscle Tone 1 min: Flaccid Color 1 min: Blue/Pale Resuscitation Effort 1 min: Tactile Stimulation; PPV/NCPAP SCORE 1 MIN: 4 Heart Rate 5 min: >100 bpm Resp Effort 5 min: Slow, Irregular Reflex Irritability 5 min: Cough or Sneeze or Pulls Away Muscle Tone 5 min: Some Flexion of Extremities Color 5 min: Body [place], Extremities Blue Resuscitation Effort 5 min: Tactile Stimulation; Oxygen; PPV/NCPAP SCORE 5 MIN: 7 Heart Rate 10 min: >100 bpm Resp Effort 10 min: Slow, Irregular Reflex Irritability 10 min: Cough or Sneeze or Pulls Away Muscle Tone 10 min: Some Flexion of Extremities Color 10 min: Completely [place] Resuscitation Effort 10 min: Oxygen; PPV/NCPAP SCORE 10 MIN: 8 INFANT INFORMATION BABY A Gestational Age at Delivery: 41.0 Gestational Status: Late Term- 41- 41.6 Weeks Outcome : Liveborn Infant Condition : Stable Sex: Female IDENTIFICATION BABY A Verification Date/Time: 11/16/2016 00:00 ID Band Number: [id number] Mother's Name Verified: Yes RN Verifying Infant: BertaLambert Torres Additional Verifying Personnel: Anastacia Perez WEIGHT/LENGTH BABY A Infant Birthweight (gm): 3835 Weight (lb): 8 Weight (oz): 7 Infant Length (in): 20.50 Length (cm): 52.07 CORD INFORMATION BABY A No. Cord Vessels: 3 Nuchal Cord : N/A Cord Blood Taken: Yes-For Storage (Mom's Blood type +) Suction: Mouth; Nose ASSESSMENT BABY A Complications: Multiple Late Decels; Multiple Variable Decels Infant Complications- Other: with pushing Physical Findings at Delivery: Caput Succedaneum; Molding of the Head Physical Findings- Other: See full nursery assessment and resuscitation summary. Infant Respirations: Appears Normal Skin to Skin: No Rn Diabetes Educator/ALS Called : Yes Infant Care By: Michelle Gonzáles RN Transferred To: Nursery BABY B INFORMATION : N/A SIGNATURES Signature: with User ID: [email or web address]
[2016-11-16] MEDS: IBUPROFEN 800 MG TABLET PO SCH ×3 (05:05→21:18)
--- NOTE | 2016-11-16 07:01 | L&D Flow Sheet ---
LD Flowsheet Datetime Report Generated by CPN: 11/16/2016 07:00 Datetime: 11/16/2016 02:23 Pain Scale: 0 (Virginia Ring, RN) Pain Presence: None/Denies (Virginia Ring, RN) Pain Type: N/A (Virginia Ring, RN) Datetime: 11/16/2016 01:58 NBP Sys/Safia/Mean (mmHg): 126 (QS system process) : 69 (QS system process) : 92 (QS system process) Pulse: 68 (QS system process) Temperature (F): 98.3 (Virginia Ring, RN) Temperature (C): 36.8 (QS system process) Temperature Route: Oral (Virginia Ring, RN) Datetime: 11/16/2016 01:55 NBP Sys/Safia/Mean (mmHg): 116 (QS system process) : 63 (QS system process) : 85 (QS system process) Pulse: 75 (QS system process) Datetime: 11/16/2016 01:45 Temperature (F): 98.4 (Virginia Ring, RN) Temperature (C): 36.9 (QS system process) Temperature Route: Oral (Virginia Ring, RN) Pain Scale: 0 (Virginia Ring, RN) Pain Presence: None/Denies (Virginia Ring, RN) Pain Type: N/A (Virginia Ring, RN) Datetime: 11/16/2016 01:40 NBP Sys/Safia/Mean (mmHg): 128 (QS system process) : 71 (QS system process) : 94 (QS system process) Pulse: 68 (QS system process) Datetime: 11/16/2016 01:30 Pain Scale: 0 (Virginia Ring, RN) Pain Presence: None/Denies (Virginia Ring, RN) Pain Type: N/A (Virginia Ring, RN) Datetime: 11/16/2016 01:25 NBP Sys/Safia/Mean (mmHg): 127 (QS system process) : 67 (QS system process) : 92 (QS system process) Pulse: 69 (QS system process) Datetime: 11/16/2016 01:15 Stage of : Recovery (Virginia Ring, RN) Pain Scale: 0 (Virginia Ring, RN) Pain Presence: None/Denies (Virginia Ring, RN) Pain Type: N/A (Virginia Ring, RN) Datetime: 11/16/2016 01:11 Temperature (F): 98.0 (Virginia Ring, RN) Temperature (C): 36.7 (QS system process) Temperature Route: Axillary (Virginia Ring, RN) Datetime: 11/16/2016 01:10 NBP Sys/Safia/Mean (mmHg): 123 (QS system process) : 64 (QS system process) : 87 (QS system process) Pulse: 88 (QS system process) Respirations: 16 (Virginia Ring, RN) Temperature (F): 98.3 (Virginia Ring, RN) Temperature (C): 36.8 (QS system process) Temperature Route: Oral (Virginia Ring, RN) Datetime: 11/16/2016 01:00 Stage of : Recovery (Virginia Ring, RN) Pain Scale: 0 (Virginia Ring, RN) Pain Presence: None/Denies (Virginia Ring, RN) Pain Type: N/A (Virginia Ring, RN) Datetime: 11/16/2016 00:55 NBP Sys/Safia/Mean (mmHg): 142 (QS system process) : 69 (QS system process) : 95 (QS system process) Pulse: 81 (QS system process) Datetime: 11/16/2016 00:45 Temperature (F): 98.4 (Adrienne Mishra, RN) Temperature (C): 36.9 (QS system process) Temperature Route: Axillary (Adrienne Mishra, RN) Datetime: 11/16/2016 00:18 NBP Sys/Safia/Mean (mmHg): 118 (QS system process) : 62 (QS system process) : 83 (QS system process) Pulse: 74 (QS system process) Datetime: 11/16/2016 00:10 Stage of : Recovery (Adrienne Marshallamari, RN) Datetime: 11/16/2016 00:08 Pitocin (milliunit): Pitocin 20 Units in 1000ml NS (Virginia Ring, RN) Datetime: 11/16/2016 00:00 Stage of : Recovery (Virginia Ring, RN) Pain Scale: 0 (Virginia Ring, RN) Pain Presence: None/Denies (Virginia Ring, RN) Pain Type: N/A (Virginia Ring, RN) Datetime: 11/15/2016 23:58 Stage 2 Comments: Infant to nursery with RN Gonzáles for further evaluation (Adrienne Rolandosmann, RN) Datetime: 11/15/2016 23:55 Stage 2 Comments: Pitocin bolus started per protocol (Adrienne Mishra, RN) Datetime: 11/15/2016 23:54 Stage 2 Comments: Delivery of viable female, infant transfered to warmer for evaluation on patient's request. (Adriennejodi Mishra, RN) Datetime: 11/15/2016 23:50 Stage 2 Comments: Nursery Nurse RN Gonzáles at bedside for delivery (Adriennejodi Mishra RN) Datetime: 11/15/2016 23:49 Stage 2 Comments: Nursery notified of imminent delivery and currently in route. (Adrienne Mishra RN) Datetime: 11/15/2016 23:45 Monitor Mode: External; Palpation (Adrienne Mishra RN) Frequency (min): 1.5-3 (Adrienne Mishra RN) Quality: Moderate to Strong (Adrienne Mishra RN) Duration (sec): 40-80 (Adrienne Mishra, RN) Resting Tone (Palpate): Relaxed (Adrienne Mishra RN) Contraction Comments: pushing with contractions, RN remains at bedside performing appropriate interventions based on tracing. Dr. Grant on unit and monitoring tracing (Adrienne Mishra RN) Comments: tracing broken, difficult to determine baseline. delivery imminent (Adrienne Mishra RN) Pitocin (milliunit): Pitocin Remains (milliunits) @ (Annotations: 12) (Virginia Salgado RN) Communication: Provider at Bedside (Virginia Ring, RN) Communication Comments: bed broken down for delivery (Virginia Ring, RN) Datetime: 11/15/2016 23:41 Pushing: Coached on Pushing; Urge to Push (Virginia Ring, RN) Pushing Position: Pushing with Contractions; Pushing Lithotomy (Virginia Ring, RN) Pushing Progress: Presenting Part Visible; Pushing Effectively with Contractions (Virginia Ring, RN) Datetime: 11/15/2016 23:37 NBP Sys/Safia/Mean (mmHg): 115 (QS system process) : 56 (QS system process) : 76 (QS system process) Pulse: 72 (QS system process) LaborFlag: Labor (QS system process) Datetime: 11/15/2016 23:36 Temperature (F): 98.5 (Virginia Ring, RN) Temperature (C): 36.9 (QS system process) Temperature Route: Axillary (Virginia Ring, RN) LaborFlag: Labor (QS system process) Datetime: 11/15/2016 23:32 IV/Blood Work: New IV Bag Hung (Virginia Ring, RN) Datetime: 11/15/2016 23:30 Monitor Mode: External; Palpation (Adrienne Mishra RN) Frequency (min): patient continously pushing (Adrienne Mishra RN) Resting Tone (Palpate): Relaxed (Adrienne Mishra RN) Contraction Comments: pushing with contractions, RN remains at bedside performing appropriate interventions based on tracing. Dr. Grant on unit and monitoring tracing (Adrienne Mishra RN) Comments: unable to determine baseline due to broken tracing, questionable decelerations noted, and interventions performed (Adrienne Mishra RN) Pitocin (milliunit): Pitocin Remains (milliunits) @ (Annotations: 12) (Virginia Salgado, SARTHAK) Datetime: 11/15/2016 23:18 Actions for Decelerations: Oxygen Applied (Virginia Salgado RN) Datetime: 11/15/2016 23:15 Monitor Mode: External; Palpation (Adrienne Mishra RN) Frequency (min): unable to determine due patient continuously trying to push (Adrienne Mishra RN) Resting Tone (Palpate): Relaxed (Adrienne Mishra RN) Contraction Comments: pushing with contractions, RN remains at bedside performing appropriate interventions based on tracing. Dr. Grant on unit and monitoring tracing (Adrienne Mishra RN) Monitor Mode: External US (Adrienne Mishra RN) FHR Baseline Rate : 130 (Adrienne Mishra RN) Decelerations: Late; Variable (Adrienne Mishra RN) Pitocin (milliunit): Pitocin Remains (milliunits) @ (Annotations: 12) (Virginia Ring, RN) Datetime: 11/15/2016 23:00 Frequency (min): unable to determine frequency and duration accurately due to patient continuously trying to push (Adrienne Mishra RN) Quality: Moderate (Adrienne Mishra RN) Resting Tone (Palpate): Relaxed (Adrienne Mishra RN) Contraction Comments: pushing with contractions, RN remains at bedside performing appropriate interventions based on tracing. Dr. Grant on unit and monitoring tracing (Adrienne Mishra RN) Monitor Mode: External US (Adrienne Mishra RN) FHR Baseline Rate : 150 (Adrienne Mishra RN) Variability: Moderate 6-25 bpm (Adrienne Mishra RN) Decelerations: Late (Adrienne Mishra RN) Pitocin (milliunit): Pitocin Remains (milliunits) @ (Annotations: 12) (Virginia Ring, RN) Datetime: 11/15/2016 22:51 Pushing: Coached on Pushing; Urge to Push (Virginia Ring, RN) Stage 2 Comments: hands and knees (Virginia Ring, RN) Datetime: 11/15/2016 22:46 Pushing: Coached on Pushing (Virginia Ring, RN) Pushing Position: Pushing Left Side (Virginia Ring, RN) Datetime: 11/15/2016 22:45 Monitor Mode: External; Palpation (Adrienne Mishra RN) Frequency (min): 1.5-3 (Adrienne Mishra RN) Quality: Moderate (Adrienne Mishra RN) Duration (sec): 30-80 (Adrienne Mishra RN) Resting Tone (Palpate): Relaxed (Adrienne Mishra RN) Monitor Mode: External US (Adrienne Mishra RN) FHR Baseline Rate : 140 (Adrienne Mishra RN) Variability: Moderate 6-25 bpm (Adrienne Mishra RN) Accelerations: 15X15 (Adrienne Mishra RN) Decelerations: Late (Adrienne Mishra RN) Pitocin (milliunit): Pitocin Remains (milliunits) @ (Annotations: 12) (Virginia Salgado, RN) Datetime: 11/15/2016 22:43 Communication: Provider at Bedside (Virginia Salgado, RN) Communication Comments: Dr Grant at bedside (Virginia Ring, RN) Datetime: 11/15/2016 22:30 Monitor Mode: External; Palpation (Adrienne Mishra RN) Frequency (min): 2-2.5 (Adrienne Mishra RN) Quality: Moderate (Adrienne Mishra RN) Duration (sec): 50-70 (Adrienne Mishra RN) Resting Tone (Palpate): Relaxed (Adrienne Mishra RN) Monitor Mode: External US (Adrienne Mishra RN) FHR Baseline Rate : 145 (Adrienne Mishra RN) Variability: Moderate 6-25 bpm (Adrienne Mishra RN) Accelerations: 15X15 (Adrienne Mishra RN) Decelerations: Late (Adrienne Kossmann, RN) Pitocin (milliunit): Pitocin Remains (milliunits) @ (Annotations: 12) (Virginia Ring, RN) Datetime: 11/15/2016 22:28 Pushing: Coached on Pushing; Urge to Push (Virginia Ring, RN) Pushing Position: Pushing with Contractions; Pushing Lithotomy (Virginia Ring, RN) Stage 2 Comments: tug of war (Virginia Ring, RN) Datetime: 11/15/2016 22:21 Pushing: Coached on Pushing; Urge to Push (Virginia Ring, RN) Pushing Position: Pushing Left Side (Virginia Ring, RN) Datetime: 11/15/2016 22:16 Pushing: Coached on Pushing; Urge to Push (Virginia Ring, RN) Pushing Position: Pushing with Contractions; Pushing Right Side (Virginia Ring, RN) Stage 2 Comments: tug of war (Virginia Ring, RN) Datetime: 11/15/2016 22:15 Frequency (min): 2-2.5 (Adrienne Mishra RN) Quality: Moderate (Adrienne Mishra RN) Duration (sec): 40-50 (Adrienne Mishra RN) Resting Tone (Palpate): Relaxed (Adrienne Mishra RN) Contraction Comments: pushing with contractions, RN remains at bedside performing appropriate interventions based on tracing. Dr. Grant on unit and monitoring tracing (Adrienne Mishra RN) Comments: unable to determine baseline due to broken tracing while pushing (Adrienne Mishra RN) Pitocin (milliunit): Pitocin Remains (milliunits) @ (Annotations: 12) (Virginia Ring, RN) Datetime: 11/15/2016 22:10 Pushing: Coached on Pushing; Urge to Push (Virginia Ring, RN) Pushing Position: Pushing with Contractions; Pushing Right Side (Virginia Ring, RN) Datetime: 11/15/2016 22:02 Pushing Position: Pushing with Contractions (Virginia Ring, RN) Pushing Progress: Rectal Bulging (Virginia Ring, RN) Stage 2 Comments: tug of war (Virginia Ring, RN) Datetime: 11/15/2016 22:00 Temperature (F): 99.0 (Virginia Ring, RN) Temperature (C): 37.2 (QS system process) Temperature Route: Oral (Virginia Ring, RN) Monitor Mode: External; Palpation (Adrienne Mishra RN) Frequency (min): 3 (Adrienne Mishra RN) Quality: Moderate (Adrienne Mishra RN) Duration (sec): 30-70 (Adrienne Mishra RN) Resting Tone (Palpate): Relaxed (Adrienne Mishra RN) Contraction Comments: pushing with contractions, RN remains at bedside performing appropriate interventions based on tracing. Dr. Grant on unit and monitoring tracing (Adrienne Mishra RN) Monitor Mode: External US (Adrienne Mishra RN) FHR Baseline Rate : 150 (Adrienne Mishra RN) Variability: Moderate 6-25 bpm (dArienne Mishra RN) Decelerations: Variable (Adrienne Mishra RN) Pitocin (milliunit): Pitocin Remains (milliunits) @ (Annotations: 12) (Virginia Salgado RN) LaborFlag: Labor (QS system process) Datetime: 11/15/2016 21:45 Monitor Mode: External; Palpation (Adrienne Mishra RN) Frequency (min): unable to determine due to pushing (Adrienne Mishra RN) Quality: Moderate (Adrienne Mishra RN) Resting Tone (Palpate): Relaxed (Adrienne Mishra RN) Contraction Comments: pushing with contractions, RN remains at bedside performing appropriate interventions based on tracing. Dr. Grant on unit and monitoring tracing (Adrienne Mishra RN) Monitor Mode: External US (Adrienne Mishra RN) FHR Baseline Rate : 150 (Adrienne Mishra RN) Variability: Moderate 6-25 bpm (Adrienne Mishra RN) Decelerations: Variable (Adrienne Mishra RN) Pitocin (milliunit): Pitocin Remains (milliunits) @ (Annotations: 12) (Virginia Ring, RN) Datetime: 11/15/2016 21:43 Pushing: Urge to Push (Virginia Ring, RN) Pushing Position: Pushing with Contractions; Pushing Left Side (Virginia Ring, RN) Datetime: 11/15/2016 21:35 Pitocin (milliunit): Pitocin Increased to (milliunits) @ 12 (Virginia Ring, RN) Datetime: 11/15/2016 21:33 Stage 2 Comments: pushing hands and knees (Virginia Ring, RN) Datetime: 11/15/2016 21:30 Monitor Mode: External; Palpation (Adrienne Mishra RN) Frequency (min): 3-4 (Adrienne Mishra RN) Quality: Moderate (Adrienne Mishra RN) Duration (sec): 40-60 (Adrienne Mishra RN) Resting Tone (Palpate): Relaxed (Adrienne Mishra RN) Contraction Comments: pushing with contractions, RN remains at bedside performing appropriate interventions based on tracing. Dr. Grant on unit and monitoring tracing (Adrienne Mishra RN) Monitor Mode: External US (Adrienne Mishra RN) FHR Baseline Rate : 160 (Adrienne Mishra RN) Variability: Moderate 6-25 bpm (Adrienne Mishra RN) Decelerations: Early (Adrienne Mishra RN) Pitocin (milliunit): Pitocin Remains (milliunits) @ (Annotations: 10) (Virginia Ring, RN) Datetime: 11/15/2016 21:20 Pulse: 74 (QS system process) SpO2 (%): 88 (QS system process) LaborFlag: Labor (QS system process) Datetime: 11/15/2016 21:19 Pushing Position: Pushing Lithotomy (Virginia Ring, RN) Datetime: 11/15/2016 21:18 Pushing Position: Pushing with Contractions; Pushing Right Side (Virginia Ring, RN) Datetime: 11/15/2016 21:17 Pulse: 98 (QS system process) SpO2 (%): 100 (QS system process) LaborFlag: Labor (QS system process) Datetime: 11/15/2016 21:16 NBP Sys/Safia/Mean (mmHg): 116 (QS system process) : 57 (QS system process) : 82 (QS system process) Pulse: 72 (QS system process) LaborFlag: Labor (QS system process) Datetime: 11/15/2016 21:15 Monitor Mode: External; Palpation (Adrienne Mishra RN) Frequency (min): 1.5-4 (Adrienne Mishra RN) Quality: Moderate (Adrienne Mishra RN) Duration (sec): 30-70 (Adrienne Mishra RN) Resting Tone (Palpate): Relaxed (Adrienne Mishra RN) Contraction Comments: pushing with contractions (Adrienne Mishra RN) Monitor Mode: External US (Adrienne Mishra RN) FHR Baseline Rate : 150 (Adrienne Mishra RN) Variability: Moderate 6-25 bpm (Adrienne Rolandosmann, RN) Decelerations: Variable (Adrienne Rolandosmann, RN) Pitocin (milliunit): Pitocin Increased to (milliunits) @ 10 (Virginia Ring, RN) Datetime: 11/15/2016 21:14 Pulse: 109 (QS system process) SpO2 (%): 92 (QS system process) Pushing Position: Pushing with Contractions; Pushing Left Side (Virginia Ring, RN) LaborFlag: Labor (QS system process) Datetime: 11/15/2016 21:12 Pulse: 76 (QS system process) SpO2 (%): 100 (QS system process) LaborFlag: Labor (QS system process) Datetime: 11/15/2016 21:11 Pushing: Coached on Pushing; Urge to Push (Virginia Ring, RN) Pushing Position: Pushing with Contractions; Pushing Lithotomy (Virginia Ring, RN) Datetime: 11/15/2016 21:09 Patient Position/Activity: Right Lateral (Virginia Ring, RN) Datetime: 11/15/2016 21:07 Comments: Pitocin halved (Virginia Ring, RN) Datetime: 11/15/2016 21:04 Patient Position/Activity: Left Lateral (Virginia Ring, RN) Datetime: 11/15/2016 21:03 Actions for Decelerations: Oxygen Applied (Virginia Ring, RN) Datetime: 11/15/2016 21:02 Actions for Decelerations: Side to Side; IV Bolus (Virginia Ring, RN) Datetime: 11/15/2016 21:00 Monitor Mode: External; Palpation (Adrienne Rolandosmann, RN) Frequency (min): 2-3 (Adrienne Rolandosmann, RN) Quality: Moderate (Adrienne Kossmann, RN) Duration (sec): 50-60 (Adrienne Kossmann, RN) Resting Tone (Palpate): Relaxed (Adrienne Marshallsmann, RN) Monitor Mode: External US (Adrienne Ellisann, RN) FHR Baseline Rate : 150 (Adrienne Rolandosmann, RN) Variability: Moderate 6-25 bpm (Adrienne Kossmann, RN) Accelerations: 15X15 (Adrienne Rolandosmann, RN) Decelerations: None (Adrienne Kossmann, RN) Datetime: 11/15/2016 20:58 Patient Care Comments: Catheter removed (Virginia Ring, RN) Datetime: 11/15/2016 20:55 Dilatation (cm): 10.0 (Virginia Ring, RN) Effacement (%): 100 (Virginia Ring, RN) Station: 0 (Virginia Ring, RN) Exam by: Dr. Grant (Virginia Ring, RN) Cervix, Consistency: Soft (Virginia Ring, RN) Datetime: 11/15/2016 20:53 Communication: RN at Bedside; Provider at Bedside (Virginia Ring, RN) Datetime: 11/15/2016 20:49 Pitocin (milliunit): Pitocin Increased to (milliunits) @ 18 (Virginia Ring, RN) Datetime: 11/15/2016 20:46 NBP Sys/Safia/Mean (mmHg): 122 (QS system process) : 59 (QS system process) : 81 (QS system process) Pulse: 93 (QS system process) LaborFlag: Labor (QS system process) Datetime: 11/15/2016 20:45 Monitor Mode: External; Palpation (Adrienne Mishra RN) Frequency (min): 1.5-4 (Adrienne Mishra RN) Quality: Moderate (Adrienne Mishra RN) Duration (sec): 30-70 (Adrienne Mishra RN) Resting Tone (Palpate): Relaxed (Adrienne Mishra RN) Monitor Mode: External US (Adrienne Mishra RN) FHR Baseline Rate : 145 (Adrienne Mishra RN) Variability: Minimal - Undetectable to <=5 bpm (Adrienne Mishra RN) Decelerations: None (Adrienne Mishra RN) Anesthesia Comments: Call placed to anesthesia as pt is stating having increased pain. No level detected (Virginia Salgado RN) Datetime: 11/15/2016 20:30 NBP Sys/Safia/Mean (mmHg): 118 (QS system process) : 61 (QS system process) : 83 (QS system process) Pulse: 90 (QS system process) Monitor Mode: External; Palpation (Adrienne Mishra RN) Frequency (min): 2-3 (Adrienne Mishra, SARTHAK) Quality: Moderate (Adrienne Mishra RN) Duration (sec): 40-60 (Adrienne Mishra RN) Resting Tone (Palpate): Relaxed (Adrienne Mishra, RN) Monitor Mode: External US (Adrienne Mishra RN) FHR Baseline Rate : 150 (Adrienne Mishra RN) Variability: Minimal - Undetectable to <=5 bpm (Adrienne Mishra RN) Decelerations: None (Adrienne Mishra RN) LaborFlag: Labor (QS system process) Datetime: 11/15/2016 20:29 Temperature (F): 99.2 (Virginia Ring, RN) Temperature (C): 37.3 (QS system process) Temperature Route: Oral (Virginia Ring, RN) LaborFlag: Labor (QS system process) Datetime: 11/15/2016 20:26 Pitocin (milliunit): Pitocin Increased to (milliunits) @ 16 (Virginia Ring, RN) Datetime: 11/15/2016 20:18 Pain Assessment Comments: Pt agrees upon waiting for assessment from Dr. Grant to call anesthesia. (Virginia Salgado, RN) LaborFlag: Labor (QS system process) Datetime: 11/15/2016 20:15 NBP Sys/Safia/Mean (mmHg): 117 (QS system process) : 74 (QS system process) : 87 (QS system process) Pulse: 98 (QS system process) Monitor Mode: External; Palpation (Adrienne Mishra RN) Frequency (min): utd (Adrienne Mishra RN) Quality: Moderate (Adrienne Mishra RN) Resting Tone (Palpate): Relaxed (Adrienne Mishra RN) Contraction Comments: unable to determine, toco repositioned (Adrienne Mishra RN) Monitor Mode: External US (Adrienne Mishra RN) FHR Baseline Rate : 145 (Adrienne Mishra RN) Variability: Minimal - Undetectable to <=5 bpm (Adrienne Mishra RN) Decelerations: None (Adrienne Mishra RN) LaborFlag: Labor (QS system process) Datetime: 11/15/2016 20:12 Monitor Interventions for UA: Central Garage Adjusted (Adrienne Mishra RN) Contraction Comments: palpation used to determine strength, unable to determine frequency and duration monitor was adjusted (Adrienne Mishra RN) Datetime: 11/15/2016 20:00 Monitor Mode: External; Palpation (Adrienne Mishra RN) Frequency (min): 1-5 (Adrienne Mishra RN) Quality: Moderate (Adrienne Mishra RN) Duration (sec): 40-50 (Adrienne Mishra RN) Resting Tone (Palpate): Relaxed (Adrienne Mishra RN) Monitor Mode: External US (Adrienne Mishra RN) FHR Baseline Rate : 145 (Adrienne Mishra RN) Variability: Moderate 6-25 bpm (Adrienne Mishra RN) Decelerations: None (Adrienne Mishra RN) Datetime: 11/15/2016 19:59 Pain Assessment Comments: Pt states being able to feel pain again and would like anesthesia to be called. (Virginia Salgado, SARTHAK) Patient Position/Activity: Left Extreme; Peanut Ball (Virginia Salgado, SARTHAK) LaborFlag: Labor (QS system process) Datetime: 11/15/2016 19:47 Patient Position/Activity: High Fowlers (Virginia Salgado, SARTHAK) Patient Care Comments: Pt states feeling the need to have a bowel movement. Bedpan provided. (Virginia Salgado, RN) Datetime: 11/15/2016 19:45 Monitor Mode: External; Palpation (Adrienne Ellisann, RN) Frequency (min): 2-4 (Adrienne Mishra, RN) Quality: Moderate (Adrienne Rolandosmann, RN) Duration (sec): 50-90 (Adrienne Rolandosmann, RN) Resting Tone (Palpate): Relaxed (Adriennejodi Mishra, RN) Monitor Mode: External US (Adrienne Mishra, RN) FHR Baseline Rate : 140 (Ardiennejodi Mishra, RN) Variability: Minimal - Undetectable to <=5 bpm (Adrienne Rolandosmann, RN) Decelerations: None (Adrienne Rolandosmann, RN) Datetime: 11/15/2016 19:36 Pitocin (milliunit): Pitocin Increased to (milliunits) @ 14 (Virginia Ring, RN) Datetime: 11/15/2016 19:34 Communication: Provider Orders Received; Call/Page Placed to Provider (Virginia Salgado RN) Communication Comments: Call placed to Dr. Grant. Report to include SVE, temperature, toco data. Orders received to continue to increase pitocin by 2 miliunits/min every 15 minutes for a maximum of 20 miliunits/min of until adequate labor is established. (Virginia Salgado RN) Datetime: 11/15/2016 19:32 Patient Position/Activity: Left Lateral; Peanut Ball (Virginia Salgado RN) Datetime: 11/15/2016 19:30 Monitor Mode: External; Palpation (Adrienne Mishra RN) Frequency (min): 2-4 (Adrienne Mishra RN) Quality: Moderate (Adrienne Mishra RN) Duration (sec): 60-110 (Adrienne Mishra RN) Resting Tone (Palpate): Relaxed (Adrienne Mishra RN) Monitor Mode: External US (Adrienne Mishra RN) FHR Baseline Rate : 145 (Adrienne Mishra, RN) Variability: Moderate 6-25 bpm (Adrienne Mishra, RN) Accelerations: 10X10 (Adrienne Ellisann, RN) Decelerations: None (Adrienne Mishra, RN) Dilatation (cm): 6.0 (Virginia Ring, RN) Effacement (%): 100 (Virginia Ring, RN) Station: 0 (Virginia Ring, RN) Exam by: Michelle Jennings RN (Virginia Ring, RN) Cervix, Consistency: Soft (Virginia Ring, RN) Vaginal Exam Comments: Molding noted (Virginia Ring, RN) Datetime: 11/15/2016 19:28 NBP Sys/Safia/Mean (mmHg): 120 (QS system process) : 60 (QS system process) : 83 (QS system process) Pulse: 95 (QS system process) LaborFlag: Labor (QS system process) Datetime: 11/15/2016 19:27 Patient Position/Activity: Left Lateral; Peanut Ball (Virginia Ring, RN) Datetime: 11/15/2016 19:20 Respirations: 18 (Virginia Ring, RN) Temperature (F): 99.8 (Virginia Ring, RN) Temperature (C): 37.7 (QS system process) Temperature Route: Oral (Virginia Ring, RN) Level of Consciousness: Fully Conscious (Virginia Ring, RN) DTR's/Clonus: DTRs 2+; No Clonus (Virginia Ring, RN) Headache: Denies (Virginia Ring, RN) Breath Sounds, Left: Clear and Equal (Virginia Ring, RN) Breath Sounds, Right: Clear and Equal (Virginia Ring, RN) Nausea/Vomiting: Denies (Virginia Ring, RN) RUQ Epigastric Pain: Denies (Virginia Ring, RN) Pitocin (milliunit): Pitocin Remains (milliunits) @ (Annotations: 12) (Virginia Ring, RN) LaborFlag: Labor (QS system process) Datetime: 11/15/2016 19:18 Monitor Interventions for UA: Central Garage Adjusted (Adrienne Mishra RN) Datetime: 11/15/2016 19:15 Monitor Mode: External; Palpation (Adrienne Rolandosmann, RN) Frequency (min): 2-3 (Adrienne Kossmann, RN) Quality: Moderate (Adrienne Kossmann, RN) Duration (sec): 30-80 (Adrienne Kossmann, RN) Resting Tone (Palpate): Relaxed (Adrienne Rolandosmann, RN) Monitor Mode: External US (Adrienne Rolandosmann, RN) FHR Baseline Rate : 140 (Adrienne Kossmann, RN) Variability: Moderate 6-25 bpm (Adrienne Kossmann, RN) Decelerations: None (Adrienne Kossmann, RN) Datetime: 11/15/2016 19:00 Monitor Mode: External; Palpation (Belindahalley Freitason, RN) Frequency (min): 2-3.5 (Belindahalley Freitason, RN) Quality: Moderate (Belinda Jennings, RN) Duration (sec): 60-90 (Belinda Jennings, RN) Resting Tone (Palpate): Relaxed (Belinda Jennings, RN) Monitor Mode: External US (Belinda Jennings RN) FHR Baseline Rate : 140 (Belinda Jennings RN) Variability: Moderate 6-25 bpm (Belinda Jennings RN) Accelerations: 15X15 (Belinda Jennings RN) Decelerations: None (Belinda Jennings RN) Pitocin (milliunit): Pitocin Remains (milliunits) @ 12 (Belinda Jennings RN)
[2016-11-16] MEDS: FERROUS SULFATE 325 MG TABLET PO SCH ×2 (09:56→18:25)
[2016-11-16] MEDS: SENNOSIDES/DOCUSATE 8.6-50 MG 1 EACH TABLET PO SCH (09:56)
[2016-11-16] MEDS: PRENATAL VITAMIN W-O CA NO5/FE FUMARATE/FA CAPSULE PO SCH (09:56)
[2016-11-16] MEDS: DOCUSATE SODIUM 100 MG CAPSULE PO SCH ×2 (09:56→18:25)
--- NOTE | 2016-11-16 14:17 | PDOC PROGRESS REPORT ---
Subjective-OB Subjective: Post Delivery Day: 21 year old. Denies any needs at this time pt ambulating doing well in nicu ff@u-2 mild lochia anticipate d/c in am Physical Exam (OB) Vital Signs: Temp Pulse Resp BP Pulse Ox 98.3 F 98 18 121/75 99 11/16/16 07:46 11/16/16 07:46 11/16/16 07:46 11/16/16 07:46 11/16/16 07:46 Intake & Output 11/15/16 11/16/16 11/17/16 06:59 06:59 06:59 Weight 74.75 kg - PIH/Pre-Eclampsia Clonus: Negative - Lochia Lochia Amount: Scant < 10 ml Lochia Color: Rubra/Red - Abdomen Description: Tender, Flat Hernia Present: No Fundal Description: Firm, Midline Fundal Height: u/u - u/2 Objective-Diagnostic Laboratory: 11/15/16 10:23
[2016-11-16 16:39] LABS: ABSOLUTE BASOPHILS # (AUTO) 0.1 10^3/uL (0.0-0.2); ABSOLUTE LYMPHOCYTES (AUTO) 1.8 10^3/uL (0.5-4.7); ABSOLUTE MONOCYTES (AUTO) 1.1 10^3/uL (0.1-1.4); ABSOLUTE NEUT (AUTO) 11.8 10^3/uL (1.7-8.2); BASOPHILS % (AUTO) 0.4 % (0-2); EOSINOPHILS % (AUTO) 0.3 % (0-6); HEMATOCRIT 34.9 % (36.0-47.0); HEMOGLOBIN 11.9 g/dL (12.0-15.5); HGB HCT DIFFERENCE 0.8; LYMPHOCYTES % (AUTO) 12.2 % (13-45); MEAN CORPUSCULAR HEMOGLOBIN 31.7 pg (27.0-33.4); MEAN CORPUSCULAR HGB CONC 34.2 g/dL (32.0-36.0); MEAN CORPUSCULAR VOLUME 93 fl (80-97); MONOCYTES % (AUTO) 7.6 % (3-13); RED BLOOD COUNT 3.76 10^6/uL (3.72-5.28); RED CELL DISTRIBUTION WIDTH 15.4 % (11.5-14.0); SEGMENTED NEUTROPHILS % (AUTO) 79.5 % (42-78); WHITE BLOOD COUNT 14.8 10^3/uL (4.0-10.5)
--- NOTE | 2016-11-16 18:01 | L&D General Admission ---
General Admit Datetime Report Generated by CPN: 11/16/2016 18:00 INFORMATION Patient Age: 21 (09/29/2016 09:20:QS system process) EDC: 11/08/2016 00:00 (11/14/2016 17:45:Shereen Senior RN) EDC per Ultrasound: 11/08/2016 00:00 (11/14/2016 17:45:Shereen Senior RN) LMP: 02/02/2016 00:00 (11/14/2016 17:45:Shereen Senior RN) : 1 (11/14/2016 17:45:Shereen Senior RN) Para: 0 (11/14/2016 17:45:Shereen Senior RN) Term: 0 (11/14/2016 17:45:Shereen Senior RN) : 0 (11/14/2016 17:45:Shereen Senior RN) Spontaneous Abortions: 0 (11/14/2016 17:45:Shereen Senior RN) Induced Abortions: 0 (11/14/2016 17:45:Shereen Senior RN) Livin (11/14/2016 17:45:Shereen Senior RN) Cesareans: 0 (11/14/2016 17:45:Shereen Senior RN) VBACs: 0 (11/14/2016 17:45:Shereen Senior RN) Ectopic: 0 (11/14/2016 17:45:Shereen Senior RN) Multiple Births: 0 (11/14/2016 17:45:Shereen Senior RN) Baby, Number in Womb: 1 (11/14/2016 20:12:Adrienne Mishra RN) CARE Primary Hand Cloth Folder: [facility] (11/14/2016 17:45:Shereen Senior RN) Adequate Care: Yes (11/14/2016 17:45:Shereen Senior RN) Height (in): 62 (11/16/2016 09:06:QS system process) ALLERGIES Medication Allergy: No (11/14/2016 17:45:Shereen Senior RN) Medication Allergies: No Known Allergies (11/15/2016) (11/15/2016 08:23:QS system process) Latex Allergy: No Latex Allergies (11/14/2016 17:45:Shereen Senior RN) Food Allergies: None (11/14/2016 17:45:Shereen Senior RN) Environmental Allergies: None (11/14/2016 17:45:Shereen Senior RN) COMMUNICATION Primary Language: Hong Konger (11/14/2016 17:45:Shereen Senior RN) Medical Tx Preferred Language: Hong Konger (11/14/2016 17:45:Shereen Senior RN) Communication Barrier(s): None (11/14/2016 17:45:Shereen Senior RN) DEMOGRAPHICS Address: [address] [place] [id number] (09/29/2016 09:20:QS system process) Zipcode: [address] (09/29/2016 09:20:QS system process) Home (09/29/2016 09:20:QS system process) Work (09/29/2016 09:58:QS system process) SSN: [id number] (09/29/2016 09:20:QS system process) Next of Kin Name: BIMAL AN (09/29/2016 09:20:QS system process) Next of Kin (09/29/2016 09:20:QS system process) Next of Kin Relationship: SPO (11/15/2016 08:22:QS system process) Date of : 1995 (09/29/2016 09:20:QS system process) Marital Status: (09/29/2016 09:20:QS system process) Sex: Female (09/29/2016 09:20:QS system process) Race: (09/29/2016 09:20:QS system process) Ethnicity: Non- or (09/29/2016 09:20:QS system process) Catholic: Buddhism (09/29/2016 09:20:QS system process) DRUG AND ALCOHOL USE Alcohol: No (11/14/2016 17:45:Shereen Senior RN) Cigarettes: Never Smoker. [id number] (11/14/2016 17:45:Shereen Senior RN) Marijuana: No (11/14/2016 17:45:Shereen Senior RN) Cocaine: No (11/14/2016 17:45:Shereen Senior RN) Other Illicit Drugs: No (11/14/2016 17:45:Shereen Senior RN) VACCINE HISTORY Influenza Vaccine: No (11/14/2016 17:45:Shereen Senior RN) Pneumococcal Vaccine: No (11/14/2016 17:45:Shereen Senior RN) Tetanus Vaccine: No (11/14/2016 17:45:Shereen Senior RN) Tdap Vaccine: No (11/14/2016 17:45:Shereen Senior RN) Hepatitis B Vaccine: Yes (11/14/2016 17:45:Shereen Senior RN) Critical Care Rn: Naval (11/14/2016 17:45:Shereen Senior RN) Feeding Preference: Breast (11/14/2016 17:45:Shereen Senior RN) Benefit of Breast Feed Discussed: Yes (11/14/2016 17:45:Shereen Senior RN) Circumcision: N/A (11/14/2016 17:45:Shereen Senior RN) Classes Attended: No (11/14/2016 17:45:Shereen Senior RN) Tubal Ligation: No (11/14/2016 17:45:Shereen Senior RN) Tubal Authorization Signed: N/A (11/14/2016 17:45:Shereen Senior RN) Consent: N/A (11/14/2016 17:45:Shereen Senior RN) Consent Signed: N/A (11/14/2016 17:45:Shereen Senior RN) Pain Management Plans: Epidural (11/14/2016 17:45:Shereen Senior RN) Plans for Labor and Delivery: None (11/14/2016 17:45:Shereen Senior RN) Support Person: Bimal An (11/14/2016 17:45:Shereen Sneior RN) Support Person Relationship: (11/14/2016 17:45:Shereen Senior RN) Cultural/Spritual Practice: No (11/14/2016 17:45:Shereen Senior RN) Spir/Cult Dietary Needs: No (11/14/2016 17:45:Shereen Senior RN) LIVING SITUATION/DISCHARGE PLAN Living Arrangements: House (11/14/2016 17:45:Shereen Senior RN) Adequate Access to:: Electric; Heat; Refrigeration; Plumbing/Running water; Phone; Transportation (11/14/2016 17:45:Shereen Senior RN) Discharge Signal Circuit Designer Person: Bimal An (11/14/2016 17:45:Shereen Senior RN) Person to Help after Discharge: Bimal An (11/14/2016 17:45:Shereen Senior RN) Currently Using Commun Resources: No (11/14/2016 17:45:Shereen Senior RN) Outside Agency/Net Lead Architect: No (11/14/2016 17:45:Shereen Senior RN) Car Seat for Discharge: Yes (11/14/2016 17:45:Shereen Senior RN) Adoption Requested: No (11/14/2016 17:45:Shereen Senior RN) Pt Contact w/ Post : N/A (11/14/2016 17:45:Shereen Senior RN) LABS Blood Type: B Positive (11/14/2016 17:45:Shereen Senior RN) Antibody Screen: Negative (11/14/2016 17:45:Shereen Senior RN) Rho(G) this : Not Applicable (11/14/2016 17:45:Shereen Senior RN) Hemoglobin: 11.9 L (11/16/2016 16:30:QS system process) Hematocrit: 34.9 L (11/16/2016 16:30:QS system process) MCV: 93 (11/16/2016 16:30:QS system process) Group Beta Strep: Negative (11/14/2016 17:45:Shereen Senior RN) Gonorrhea: Negative (11/14/2016 17:45:Shereen Senior RN) Chlamydia: Negative (11/14/2016 17:45:Shereen Senior RN) RPR/VDRL: Nonreactive (11/14/2016 17:45:Shereen Senior RN) HIV Exposure Test: Negative (11/14/2016 17:45:Shereen Senior RN) Hepatitis B: Negative (11/14/2016 17:45:Shereen Senior RN) Rubella: Immune (11/14/2016 17:45:Shereen Senior RN) OB/PREVIOUS HISTORY LMP: 02/02/2016 00:00 (11/14/2016 17:45:Shereen Senior RN) Previous Procedures: None (11/14/2016 17:45:Shereen Senior RN) Current Procedures: Ultrasound; NST (11/14/2016 17:45:Shereen Senior RN) History of Previous : No (11/14/2016 17:45:Shereen Senior RN) History of Gestational Diabetes: No (11/14/2016 17:45:Shereen Senior RN) History of PIH: No (11/14/2016 17:45:Shereen Senior RN) History of Incompetent Cervix: No (11/14/2016 17:45:Shereen Senior RN) History of Placenta Previa/Abrup: No (11/14/2016 17:45:Shereen Senior RN) History of Macrosomia: No (11/14/2016 17:45:Shereen Senior RN) History of IUGR: No (11/14/2016 17:45:Shereen Senior RN) History of Hemorrhage: No (11/14/2016 17:45:Shereen Senior RN) History of Loss/Stillborn: No (11/14/2016 17:45:Shereen Senior RN) History of : No (11/14/2016 17:45:Shereen Senior RN) History of D (Rh) Sensitization: No (11/14/2016 17:45:Shereen Senior RN) History Recurrent Loss/Stillborn: No (11/14/2016 17:45:Shereen Senior RN) History Depression/PP Depression: No (11/14/2016 17:45:Shereen Senior RN) History of Uterine Anomaly/NANO: No (11/14/2016 17:45:Shereen Senior RN) History of Infertility: No (11/14/2016 17:45:Shereen Senior RN) History of ART Treatment: No (11/14/2016 17:45:Shereen Senior RN) History of NANO: No (11/14/2016 17:45:Shereen Senior RN) Comments Obstetrical History: G1 - Current - anemia (11/14/2016 17:45:Shereen Senior RN) MEDICAL HISTORY Med Hx Diabetes: No (11/14/2016 17:45:Shereen Senior RN) Med Hx Hypertension: No (11/14/2016 17:45:Shereen Senior RN) Med Hx Heart Disease: No (11/14/2016 17:45:Shereen Senior RN) Med Hx Autoimmune Disorder: No (11/14/2016 17:45:Shereen Senior RN) Med Hx Kidney Disease/UTI: No (11/14/2016 17:45:Shereen Senior RN) Med Hx Neurologic/Epilepsy: No (11/14/2016 17:45:Shereen Senior RN) Med Hx Psychiatric Disorders: No (11/14/2016 17:45:Shereen Senior RN) Med Hx Hepatitis/Liver Disease: No (11/14/2016 17:45:Shereen Senior RN) Med Hx Varicosities/Phlebitis: No (11/14/2016 17:45:Shereen Senior RN) Med Hx Thyroid Dysfunction: No (11/14/2016 17:45:Shereen Senior RN) Med Hx Trauma/Violence: No (11/14/2016 17:45:Shreeen Senior RN) Med Hx Blood Transfusion: No (11/14/2016 17:45:Shereen Senior RN) Med Hx Pulmonary (Asthma,TB): No (11/14/2016 17:45:Shereen Senior RN) Med Hx Breast: No (11/14/2016 17:45:Shereen Senior RN) Med Hx REGIONAL COORDINATOR Surgery: No (11/14/2016 17:45:Shereen Senior RN) Med Hx Hospitalization/Surgery: No (11/14/2016 17:45:Shereen Senior RN) Med Hx Anesthetic Complications: No (11/14/2016 17:45:Shereen Senior RN) Med Hx Abnormal Pap Smear: No (11/14/2016 17:45:Shereen Senior RN) Other Medical Diseases: No (11/14/2016 17:45:Shereen Senior RN) Med Hx Significant Family Hx: No (11/14/2016 17:45:Shereen Senior RN) INFECTIOUS HISTORY Inf Hx Gonorrhea: No (11/14/2016 17:45:Shereen Senior RN) Inf Hx Chlamydia: No (11/14/2016 17:45:Shereen Senior RN) Inf Hx Syphilis: No (11/14/2016 17:45:Shereen Senior RN) Inf Hx HIV/AIDS: No (11/14/2016 17:45:Shereen Senior RN) Inf Hx Human Papilloma Virus: No (11/14/2016 17:45:Shereen Senior RN) Inf Hx Pt/Partner Genital Herpes: No (11/14/2016 17:45:Shereen Senior RN) Inf Hx Tuberculosis/Exposure: No (11/14/2016 17:45:Shereen Senior RN) Inf Hx Hepatitis B,C: No (11/14/2016 17:45:Shereen Senior RN) Inf Hx Rash or Viral Illness: No (11/14/2016 17:45:Shereen Senior RN) GENETIC HISTORY Gen Hx Age >=35 at [place]: No (11/14/2016 17:45:Shereen Senior RN) Gen Hx Thalassemia: No (11/14/2016 17:45:Shereen Senior RN) Gen Hx Congenital Heart Defect: No (11/14/2016 17:45:Shereen Senior RN) Gen Hx Neural Tube Defect: No (11/14/2016 17:45:Shereen Senior RN) Gen Hx Down's Syndrome: No (11/14/2016 17:45:Shereen Senior RN) Gen Hx Jayme-Sachs: No (11/14/2016 17:45:Shereen Senior RN) Gen Hx Gopi: No (11/14/2016 17:45:Shereen Senior RN) Gen Hx Familial Dysautonomia: No (11/14/2016 17:45:Shereen Senior RN) Gen Hx Sickle Cell Disease/Trait: No (11/14/2016 17:45:Shereen Senior RN) Gen Hx Hemophilia/Blood Disorder: No (11/14/2016 17:45:Shereen Senior RN) Gen Hx Muscular Dystrophy: No (11/14/2016 17:45:Shereen Senior RN) Gen Hx Cystic Fibrosis: No (11/14/2016 17:45:Shereen Senior RN) Gen Hx Huntingtons Chorea: No (11/14/2016 17:45:Shereen Senior RN) Gen Hx Mental Retardation/Autism: No (11/14/2016 17:45:Shereen Senior RN) Gen Hx Tested for Fragile X: No (11/14/2016 17:45:Shereen Senior RN) Gen Hx Other Inher/Chromosomal: No (11/14/2016 17:45:Shereen Senior RN) Gen Hx Maternal Metabolic DO: No (11/14/2016 17:45:Shereen Senior RN) Gen Hx Pt Father or FOB Defect: No (11/14/2016 17:45:Shereen Senior RN) Gen Hx Other Genetic History: No (11/14/2016 17:45:Shereen Senior RN) Gen Hx Drugs/Meds since LMP: Yes (11/14/2016 17:45:Virginia Salgado RN) Gen Hx Medications: PNV (11/14/2016 17:45:Virginia Salgado RN)
[2016-11-16] MEDS ORDERED: DIPHENHYDRAMINE HCL 25 MG CAPSULE ONE (20:18)
[2016-11-16] MEDS ORDERED: DIPHENHYDRAMINE HCL 50 MG CAPSULE PO ONE (21:30)
[2016-11-17] MEDS: IBUPROFEN 800 MG TABLET PO SCH (05:55)
--- NOTE | 2016-11-17 06:01 | L&D Current Admission ---
Current Admit Datetime Report Generated by CPN: 11/17/2016 06:00 ADMISSION INFORMATION Current Admit Date/Time: 11/15/2016 09:59 (11/15/2016 08:56:Belinda Jennings RN) Reason for Admission: Onset of Labor (11/15/2016 08:56:Belinda Jennings RN) Chief Complaint: Contractions (11/15/2016 08:56:Shereen Senior RN) Medications During : Vitamin (11/15/2016 08:56:Belinda Jennings RN) EGA per Dates: 41.0 (11/15/2016 08:56:QS system process) EGA per US: 41.0 (11/15/2016 08:56:QS system process) Admitted From: Home (11/14/2016 18:20:Belinda Jennings RN) Reason for Induction: Not Applicable (11/15/2016 08:56:Belinda Jennings RN) Records Available: Yes (11/15/2016 08:56:Belinda Jennings RN) General Admission Information: Reviewed; Updated (11/15/2016 08:56:Belinda Jennings RN) General Admission Reviewed By: Michelle Jennings RN (11/15/2016 08:56:Belinda Jennings RN) BELONGINGS/ADVANCED DIRECTIVES Valuables/Personal Effects: Purse/Wallet; Cell Phone (11/15/2016 08:56:Belinda Jennings RN) Other Belongings: clothing (11/15/2016 08:56:Belinda Jennings RN) Disposition of Belongings: Kept with Patient (11/15/2016 08:56:Belinda Jennings RN) Advance Direct for Healthcare: No, and Wants No Information (11/15/2016 08:56:Belinda Jennings RN) Durable Power of Registered Nurse Hh Case Manager: No (11/15/2016 08:56:Belinda Jennings RN) Living Will: No (11/15/2016 08:56:Belinda Jennings RN) Organ Donor: Yes (11/15/2016 08:56:Belinda Jennings RN) Pt Rights Information Given: Yes (11/15/2016 08:56:Belinda Jennings RN) Pt Understands Pt Rights: Yes (11/15/2016 08:56:Belinda Jennings RN) LEARNING ASSESSMENT Knowledge Level: Understands L_D Process; Understands Care Activities; Had Pre-Hospital Education; Understands Diagnosis (11/15/2016 08:56:Belinda Jennings RN) Barriers to Learning: None (11/15/2016 08:56:Belinda Jennings RN) Learning Readiness: Motivated (11/15/2016 08:56:Belinda Jennings RN) Learns Best By: 1 to 1 Instruction; Demonstration (11/15/2016 08:56:Belinda Jennings RN) Learning Needs: Labor and Delivery Process; Pain Management; Symptoms to Report; Treatment Plan; Medication; Diagnosis; Nutrition; Equipment; Care; Community Resources (11/15/2016 08:56:Belinda Jennings RN) DOMESTIC VIOLANCE SCREENING Dom Viol Threatened/Hurt: No (11/15/2016 08:56:Belinda Jennings RN) Hx of Abuse/Neglect past 2yrs: No (11/15/2016 08:56:Belinda Jennings RN) Feel Unsafe Going Home: No (11/15/2016 08:56:Belinda Jennings RN) Addt'l Observ Indicating Abuse: No (11/15/2016 08:56:Belinda Jennings RN) Reason Unable to Complete Screen: N/A, Screen Completed (11/15/2016 08:56:Belinda Jennings RN) Considered Personal Harm/Suicide: No (11/15/2016 08:56:Belinda Jennings RN) NUTRITIONAL/FUNCTIONAL SCREENING Problem with Appetite >5 Days: No (11/15/2016 08:56:Belinda Jennings RN) Chew/Swallow Difficulties: No (11/15/2016 08:56:Belinda Jennings RN) Inappropriate Wt Gain/Loss: No (11/15/2016 08:56:Belinda Jennings RN) Presence Skin Breakdown/Ulcer: No (11/15/2016 08:56:Belinda Jennings RN) Special Diet: No (11/15/2016 08:56:Belinda Jennings RN) Pt Requests General Internal Medicine Physician Visit: No (11/15/2016 08:56:Belinda Jennings RN) Hx of Any of the Following?: N/A (11/15/2016 08:56:Belinda Jennings RN) New Diagnosis of: N/A (11/15/2016 08:56:Belinda Jennings RN) Requires Assist w/Ambulation: No (11/15/2016 08:56:Belinda Jennings RN) Uses Assist Device to Ambulate: No (11/15/2016 08:56:Belinda Jennings RN) Pt Requires Help w/ADL's: No (11/15/2016 08:56:Belinda Jennings RN)
--- NOTE | 2016-11-17 06:01 | L&D General Admission ---
General Admit Datetime Report Generated by CPN: 11/17/2016 06:00 INFORMATION Patient Age: 21 (09/29/2016 09:20:QS system process) EDC: 11/08/2016 00:00 (11/14/2016 17:45:Shereen Senior RN) EDC per Ultrasound: 11/08/2016 00:00 (11/14/2016 17:45:Shereen Senior RN) LMP: 02/02/2016 00:00 (11/14/2016 17:45:Shereen Senior RN) : 1 (11/14/2016 17:45:Shereen Senior RN) Para: 0 (11/14/2016 17:45:Shereen Senior RN) Term: 0 (11/14/2016 17:45:Shereen Senior RN) : 0 (11/14/2016 17:45:Shereen Senior RN) Spontaneous Abortions: 0 (11/14/2016 17:45:Shereen Senior RN) Induced Abortions: 0 (11/14/2016 17:45:Shereen Senior RN) Livin (11/14/2016 17:45:Shereen Senior RN) Cesareans: 0 (11/14/2016 17:45:Shereen Senior RN) VBACs: 0 (11/14/2016 17:45:Shereen Senior RN) Ectopic: 0 (11/14/2016 17:45:Shereen Senior RN) Multiple Births: 0 (11/14/2016 17:45:Shereen Senior RN) Baby, Number in Womb: 1 (11/14/2016 20:12:Adrienne Mishra RN) CARE Primary Marketing Reporting Analyst: [email or web address] (11/14/2016 17:45:Shereen Senior RN) Adequate Care: Yes (11/14/2016 17:45:Shereen Senior RN) Height (in): 62 (11/16/2016 09:06:QS system process) ALLERGIES Medication Allergy: No (11/14/2016 17:45:Shereen Senior RN) Medication Allergies: No Known Allergies (11/15/2016) (11/15/2016 08:23:QS system process) Latex Allergy: No Latex Allergies (11/14/2016 17:45:Shereen Senior RN) Food Allergies: None (11/14/2016 17:45:Shereen Senior RN) Environmental Allergies: None (11/14/2016 17:45:Shereen Senior RN) COMMUNICATION Primary Language: Greenlandic (11/14/2016 17:45:Shereen Senior RN) Medical Tx Preferred Language: Greenlandic (11/14/2016 17:45:Shereen Senior RN) Communication Barrier(s): None (11/14/2016 17:45:Shereen Senior RN) DEMOGRAPHICS Address: [address] [place] [id number] (09/29/2016 09:20:QS system process) Zipcode: [address] (09/29/2016 09:20:QS system process) Home (09/29/2016 09:20:QS system process) Work (09/29/2016 09:58:QS system process) SSN: [id number] (09/29/2016 09:20:QS system process) Next of Kin Name: BIMAL AN (09/29/2016 09:20:QS system process) Next of Kin (09/29/2016 09:20:QS system process) Next of Kin Relationship: SPO (11/15/2016 08:22:QS system process) Date of : 1995 (09/29/2016 09:20:QS system process) Marital Status: (09/29/2016 09:20:QS system process) Sex: Female (09/29/2016 09:20:QS system process) Race: (09/29/2016 09:20:QS system process) Ethnicity: Non- or (09/29/2016 09:20:QS system process) Orthodoxy: Restoration (09/29/2016 09:20:QS system process) DRUG AND ALCOHOL USE Alcohol: No (11/14/2016 17:45:Shereen Senior RN) Cigarettes: Never Smoker. [id number] (11/14/2016 17:45:Shereen Senior RN) Marijuana: No (11/14/2016 17:45:Shereen Senior RN) Cocaine: No (11/14/2016 17:45:Shereen Senior RN) Other Illicit Drugs: No (11/14/2016 17:45:Shereen Senior RN) VACCINE HISTORY Influenza Vaccine: No (11/14/2016 17:45:Shereen Senior RN) Pneumococcal Vaccine: No (11/14/2016 17:45:Shereen Senior RN) Tetanus Vaccine: No (11/14/2016 17:45:Shereen Senior RN) Tdap Vaccine: No (11/14/2016 17:45:Shereen Senior RN) Hepatitis B Vaccine: Yes (11/14/2016 17:45:Shereen Senior RN) Administrative Support Technician: Naval (11/14/2016 17:45:Shereen Senior RN) Feeding Preference: Breast (11/14/2016 17:45:Shereen Senior RN) Benefit of Breast Feed Discussed: Yes (11/14/2016 17:45:Shereen Senior RN) Circumcision: N/A (11/14/2016 17:45:Shereen Senior RN) Classes Attended: No (11/14/2016 17:45:Shereen Senior RN) Tubal Ligation: No (11/14/2016 17:45:Shereen Senior RN) Tubal Authorization Signed: N/A (11/14/2016 17:45:Shereen Senior RN) Consent: N/A (11/14/2016 17:45:Shereen Senior RN) Consent Signed: N/A (11/14/2016 17:45:Shereen Senior RN) Pain Management Plans: Epidural (11/14/2016 17:45:Shereen Senior RN) Plans for Labor and Delivery: None (11/14/2016 17:45:Shereen Senior RN) Support Person: Bimal An (11/14/2016 17:45:Shereen Senior RN) Support Person Relationship: (11/14/2016 17:45:Shereen Senior RN) Cultural/Spritual Practice: No (11/14/2016 17:45:Shereen Senior RN) Spir/Cult Dietary Needs: No (11/14/2016 17:45:Shereen Senior RN) LIVING SITUATION/DISCHARGE PLAN Living Arrangements: House (11/14/2016 17:45:Shereen Senior RN) Adequate Access to:: Electric; Heat; Refrigeration; Plumbing/Running water; Phone; Transportation (11/14/2016 17:45:Shereen Senior RN) Discharge Director Social Person: Bimal An (11/14/2016 17:45:Shereen Senior RN) Person to Help after Discharge: Bimal An (11/14/2016 17:45:Shereen Senior RN) Currently Using Commun Resources: No (11/14/2016 17:45:Shereen Senior RN) Outside Agency/Alumni Relations Manager: No (11/14/2016 17:45:Shereen Senior RN) Car Seat for Discharge: Yes (11/14/2016 17:45:Shereen Senior RN) Adoption Requested: No (11/14/2016 17:45:Shereen Senior RN) Pt Contact w/ Post : N/A (11/14/2016 17:45:Shereen Senior RN) LABS Blood Type: B Positive (11/14/2016 17:45:Shereen Senior RN) Antibody Screen: Negative (11/14/2016 17:45:Shereen Senior RN) Rho(G) this : Not Applicable (11/14/2016 17:45:Shereen Senior RN) Hemoglobin: 11.9 L (11/16/2016 16:30:QS system process) Hematocrit: 34.9 L (11/16/2016 16:30:QS system process) MCV: 93 (11/16/2016 16:30:QS system process) Group Beta Strep: Negative (11/14/2016 17:45:Shereen Senior RN) Gonorrhea: Negative (11/14/2016 17:45:Shereen Senior RN) Chlamydia: Negative (11/14/2016 17:45:Shereen Senior RN) RPR/VDRL: Nonreactive (11/14/2016 17:45:Shereen Senior RN) HIV Exposure Test: Negative (11/14/2016 17:45:Shereen Senior RN) Hepatitis B: Negative (11/14/2016 17:45:Shereen Senior RN) Rubella: Immune (11/14/2016 17:45:Shereen Senior RN) OB/PREVIOUS HISTORY LMP: 02/02/2016 00:00 (11/14/2016 17:45:Shereen Senior RN) Previous Procedures: None (11/14/2016 17:45:Shereen Senior RN) Current Procedures: Ultrasound; NST (11/14/2016 17:45:Shereen Senior RN) History of Previous : No (11/14/2016 17:45:Shereen Senior RN) History of Gestational Diabetes: No (11/14/2016 17:45:Shereen Senior RN) History of PIH: No (11/14/2016 17:45:Shereen Senior RN) History of Incompetent Cervix: No (11/14/2016 17:45:Shereen Senior RN) History of Placenta Previa/Abrup: No (11/14/2016 17:45:Shereen Senior RN) History of Macrosomia: No (11/14/2016 17:45:Shereen Senior RN) History of IUGR: No (11/14/2016 17:45:Shereen Senior RN) History of Hemorrhage: No (11/14/2016 17:45:Shereen Senior RN) History of Loss/Stillborn: No (11/14/2016 17:45:Shereen Senior RN) History of : No (11/14/2016 17:45:Shereen Senior RN) History of D (Rh) Sensitization: No (11/14/2016 17:45:Shereen Senior RN) History Recurrent Loss/Stillborn: No (11/14/2016 17:45:Shereen Senior RN) History Depression/PP Depression: No (11/14/2016 17:45:Shereen Senior RN) History of Uterine Anomaly/NANO: No (11/14/2016 17:45:Shereen Senior RN) History of Infertility: No (11/14/2016 17:45:Shereen Senior RN) History of ART Treatment: No (11/14/2016 17:45:Shereen Senior RN) History of NANO: No (11/14/2016 17:45:Shereen Senior RN) Comments Obstetrical History: G1 - Current - anemia (11/14/2016 17:45:Shereen Senior RN) MEDICAL HISTORY Med Hx Diabetes: No (11/14/2016 17:45:Shereen Senior RN) Med Hx Hypertension: No (11/14/2016 17:45:Shereen Senior RN) Med Hx Heart Disease: No (11/14/2016 17:45:Shereen Senior RN) Med Hx Autoimmune Disorder: No (11/14/2016 17:45:Shereen Senior RN) Med Hx Kidney Disease/UTI: No (11/14/2016 17:45:Shereen Senior RN) Med Hx Neurologic/Epilepsy: No (11/14/2016 17:45:Shereen Senior RN) Med Hx Psychiatric Disorders: No (11/14/2016 17:45:Shereen Senior RN) Med Hx Hepatitis/Liver Disease: No (11/14/2016 17:45:Shereen Senior RN) Med Hx Varicosities/Phlebitis: No (11/14/2016 17:45:Shereen Senior RN) Med Hx Thyroid Dysfunction: No (11/14/2016 17:45:Shereen Senior RN) Med Hx Trauma/Violence: No (11/14/2016 17:45:Shereen Senior RN) Med Hx Blood Transfusion: No (11/14/2016 17:45:Shereen Senior RN) Med Hx Pulmonary (Asthma,TB): No (11/14/2016 17:45:Shereen Senior RN) Med Hx Breast: No (11/14/2016 17:45:Shereen Senior RN) Med Hx TECHNICAL BUSINESS SYSTEMS ANALYST Surgery: No (11/14/2016 17:45:Shereen Senior RN) Med Hx Hospitalization/Surgery: No (11/14/2016 17:45:Shereen Senior RN) Med Hx Anesthetic Complications: No (11/14/2016 17:45:Shereen Senior RN) Med Hx Abnormal Pap Smear: No (11/14/2016 17:45:Shereen Senior RN) Other Medical Diseases: No (11/14/2016 17:45:Shereen Senior RN) Med Hx Significant Family Hx: No (11/14/2016 17:45:Shereen Senior RN) INFECTIOUS HISTORY Inf Hx Gonorrhea: No (11/14/2016 17:45:Shereen Senior RN) Inf Hx Chlamydia: No (11/14/2016 17:45:Shereen Senior RN) Inf Hx Syphilis: No (11/14/2016 17:45:Shereen Senior RN) Inf Hx HIV/AIDS: No (11/14/2016 17:45:Shereen Senior RN) Inf Hx Human Papilloma Virus: No (11/14/2016 17:45:Shereen Senior RN) Inf Hx Pt/Partner Genital Herpes: No (11/14/2016 17:45:Shereen Senior RN) Inf Hx Tuberculosis/Exposure: No (11/14/2016 17:45:Shereen Senior RN) Inf Hx Hepatitis B,C: No (11/14/2016 17:45:Shereen Senior RN) Inf Hx Rash or Viral Illness: No (11/14/2016 17:45:Shereen Senior RN) GENETIC HISTORY Gen Hx Age >=35 at [place]: No (11/14/2016 17:45:Shereen Senior RN) Gen Hx Thalassemia: No (11/14/2016 17:45:Shereen Senior RN) Gen Hx Congenital Heart Defect: No (11/14/2016 17:45:Shereen Senior RN) Gen Hx Neural Tube Defect: No (11/14/2016 17:45:Shereen Senior RN) Gen Hx Down's Syndrome: No (11/14/2016 17:45:Shereen Senior RN) Gen Hx Jayme-Sachs: No (11/14/2016 17:45:Shereen Senior RN) Gen Hx Gopi: No (11/14/2016 17:45:Shereen Senior RN) Gen Hx Familial Dysautonomia: No (11/14/2016 17:45:Shereen Senior RN) Gen Hx Sickle Cell Disease/Trait: No (11/14/2016 17:45:Shereen Senior RN) Gen Hx Hemophilia/Blood Disorder: No (11/14/2016 17:45:Shereen Senior RN) Gen Hx Muscular Dystrophy: No (11/14/2016 17:45:Shereen Senior RN) Gen Hx Cystic Fibrosis: No (11/14/2016 17:45:Shereen Senior RN) Gen Hx Huntingtons Chorea: No (11/14/2016 17:45:Shereen Senior RN) Gen Hx Mental Retardation/Autism: No (11/14/2016 17:45:Shereen Senior RN) Gen Hx Tested for Fragile X: No (11/14/2016 17:45:Shereen Senior RN) Gen Hx Other Inher/Chromosomal: No (11/14/2016 17:45:Shereen Senior RN) Gen Hx Maternal Metabolic DO: No (11/14/2016 17:45:Shereen Senior RN) Gen Hx Pt Father or FOB Defect: No (11/14/2016 17:45:Shereen Senior RN) Gen Hx Other Genetic History: No (11/14/2016 17:45:Shereen Senior RN) Gen Hx Drugs/Meds since LMP: Yes (11/14/2016 17:45:Virginia Salgado RN) Gen Hx Medications: PNV (11/14/2016 17:45:Virginia Salgado RN)
--- NOTE | 2016-11-17 06:16 | L&D Care Plan ---
LD CARE PLANS Datetime Report Generated by CPN: 11/17/2016 06:15 Datetime: 11/15/2016 10:03 Pain State: Risk For (Belinda Jennings RN) Related To: Labor and Delivery Process; Treatment and Procedures (Belinda Jennings RN) Goal(s): Patients Pain will be Assessed and Managed; Patient will Verbalize Adequate Relief of Pain or the Ability to [place] with Current Pain (Belinda Jennings RN) Interventions: Assess Pain Severity on Scale of 0 (None) to 5 (Severe); Assess Type, Location and Intensity of Pain Each Time Client Reports Discomfort and Notify Provider if Unusal Pain Develops; Encourage Proper Breathing and Relaxation Techniques; Offer Alternatives Such as Repositioning, Calm Environment, Massages, Diversional Activities, Ice Pack, Splinting, and Ambulation; Administer Analgesics as Ordered; Assist with Epidural Placement as Appropriate; Evaluate Therapeutic Effectiveness of Medication and Treatments (Belinda Jennings RN) Outcome: Patient will Report Absence or Relief of Pain Consistent with Established Pain Goal (Belinda Jennings RN) Status: Ongoing (Belinda Jennings RN) Outcome: Patient will have a Decrease in Signs and Symptoms of Discomfort (Belinda Jennings RN) Status: Ongoing (Belinda Jennings RN) Outcome: Pain will be Controlled During Procedures (Belinda Jennings RN) Status: Ongoing (Belinda Jennings RN) Anxiety State: Risk For (Belinda Jennings RN) Related To: Labor and Delivery Process; Medical Interventions (Belinda Jennings RN) Goal(s): Patient will have Decreased Anxiety and be able to Function at Acceptable Levels (Belinda Jennings RN) Interventions: Assess Verbal and Nonverbal Behavioral Indicators of Anxiety; Assist Patient to Identify and Verbalize Symptoms of Anxiety; Identify and Demonstrate Techniques to Control Anxiety; Assist Patient with Coping Mechanisms to Manage Anxiety; Provide Theraputic Touch for the Patient; Explain to Patient, Using a Calm Reassuring Approach and Nonmedical Terms, All Activities, Procedures, and Concerns; Instruct Patient and Family about Post Discharge Care, Limitations, Symptoms to Report and Resources Available (Belinda Jennings RN) Outcome: Patient will Identify, Verbalize and Demonstrate Techniques to Control Anxiety (Belinda Jennings RN) Status: Ongoing (Belinda Jennings RN) Outcome: Patient's Posture, Facial Expressions, Gestures and Activity Level will Reflect Decreased Anxiety (Belinda Jennings RN) Status: Ongoing (Belinda Jennings RN) Outcome: Patient will Verbalize a Sense of Control and/or Acceptance of the Situation (Belinda Jennings RN) Status: Ongoing (Belinda Jennings RN) Outcome: Patient will Identify and Utilize Support Person (Belinda Jennings RN) Status: Ongoing (Belinda Jennings RN) Infection State: Risk For (Belinda Jennings RN) Related To: Invasive Procedures (Belinda Jennings RN) Goal(s): The Patient will be Free of Infection, Vital Signs Stable and Lab Work within Normal Parameters (Belinda Jennings RN) Interventions: Instruct and Reinforce Proper Handwashing, Hygiene, and Care Techniques to Patient and Family; Monitor Vital Signs; Monitor Patient for the Following Signs of Infection: Fever, Abdominal Tenderness, Unusual Discharge; Monitor Aminiotic Fluid, Urine and Lochia for Color and Odor; Observe Wounds, Incisions and Invasive Line Sites for Redness, Drainage and Edema; Assess IV Sites per Hospital Policy; Monitor Lab and Test Results and Notify Provider of Abnormal Findings; Assess Nutritional Status and Promote Good Nutrition (Belinda Jennings RN) Outcome: Patient will Remain Free of Infection (Belinda Jennings RN) Status: Ongoing (Belinda Jennings RN) Outcome: Infection will be Recognized Early to Allow for Prompt Treatment (Belinda Jennings RN) Status: Ongoing (Belinda Jennings RN) Outcome: Patient will have Vital Signs Within Expected Range (Belinda Jennings RN) Status: Ongoing (Belinda Jennings RN) Injury State: Risk For (Belinda Jennings RN) Related To: Labor and Delivery Process (Belinda Jennings RN) Goal(s): Patient will Remain Free from Injury (Belinda Jennings RN) Interventions: Monitoring as per Hospital Protocol; Assess Neurological Status; Perform Risk Assessment of Patients with Induction and ; Perform Fall Risk Assessment and Prevention per Hospital Protocol; Perform DVT Risk Assessment and Prophylaxis per Hospital Protocol; Ensure that Oxygen, Suction, and Resuscitation Medications and Equipment are Readily Available; Confirm Patient ID Prior to Procedure(s) and Medication Administration per Hospital Policy (Belinda Jennings RN) Outcome: Successful Fall Risk Prevention (Belinda Jennings RN) Status: Ongoing (Belinda Jennings RN) Outcome: Patient will Deliver Infant without Adverse [place]ela (Belinda Jenninsg RN) Status: Ongoing (Belinda Jennings RN) Outcome: Patient's Neurological Status will Remain Stable (Belinda Jennings RN) Status: Ongoing (Belinda Jennings RN)
[2016-11-17 09:02] VITALS: BP 128/81
[2016-11-17 09:02] LABS: HEMATOCRIT 35.2 % (36.0-47.0); HEMOGLOBIN 11.9 g/dL (12.0-15.5); HGB HCT DIFFERENCE 0.5; MEAN CORPUSCULAR HEMOGLOBIN 31.7 pg (27.0-33.4); MEAN CORPUSCULAR HGB CONC 33.9 g/dL (32.0-36.0); MEAN CORPUSCULAR VOLUME 94 fl (80-97); RED BLOOD COUNT 3.76 10^6/uL (3.72-5.28); RED CELL DISTRIBUTION WIDTH 15.3 % (11.5-14.0); WHITE BLOOD COUNT 10.3 10^3/uL (4.0-10.5)
[2016-11-17] MEDS: FERROUS SULFATE 325 MG TABLET PO SCH (09:27)
[2016-11-17] MEDS: DOCUSATE SODIUM 100 MG CAPSULE PO SCH (09:27)
[2016-11-17] MEDS: PRENATAL VITAMIN W-O CA NO5/FE FUMARATE/FA CAPSULE PO SCH (09:27)
[2016-11-17] MEDS: SENNOSIDES/DOCUSATE 8.6-50 MG 1 EACH TABLET PO SCH (09:28)
--- NOTE | 2016-11-17 09:29 | PDOC DISCHARGE SUMMARY ---
Final Diagnosis Discharge Date: 11/17/16 - Final Diagnosis (1) Vaginal delivery Is this a current diagnosis for this admission?: Yes Discharge Data - Discharge Medication Home Medications: Vit/Iron Fumarate/FA [ Tablet] 1 tab PO DAILY 11/14/16 Docusate Sodium [Colace 100 mg Capsule] 100 mg PO BID #60 capsule 11/17/16 Ibuprofen [Motrin 800 mg Tablet] 800 mg PO Q8 #60 tablet 11/17/16 Gestational Age: 41.0 Reason(s) for Admission: Onset of Labor Procedures: NST Intrapartum Procedure(s): Spontaneous Vaginal Delivery Complication(s): Laceration-Perineal Laceration-Degree: 2nd - Brice Data Baby 1 Female at 1 minute: 4 at 5 minutes: 7 at 10 minutes: 8 Weight: 3835 kg Home with Mother: No Complications: Yes - Diagnosis Test Laboratory: Temp Pulse Resp BP Pulse Ox 98.3 F 77 18 128/81 H 99 11/17/16 08:06 11/17/16 08:06 11/17/16 08:06 11/17/16 07:41 11/17/16 08:06 11/15/16 11/15/16 11/16/16 08:30 10:23 16:30 RBC 3.83 3.76 Hgb 12.1 11.9 L Hct 35.4 L 34.9 L Urine Opiates Screen NEGATIVE 11/17/16 08:43 RBC 3.76 Hgb 11.9 L Hct 35.2 L Urine Opiates Screen - Discharge information/Instructions Discharge Activity: Activity As Tolerated, No Driving, No Lifting Over 10 Pounds , Pelvic Rest, No tub bath Discharge Diet: Regular Disposition: HOME, SELF-CARE Follow up with: [facility] in: 4, Weeks
--- NOTE | 2016-12-29 14:39 | DISCHARGE SUMMARY E ---
Discharge Summary NAME: SMOOTH COLINDRES : 1995 AGE: 21Y ADMITTED: 11/15/2016 DISCHARGED: 11/17/2016 ADDENDUM/RESPONSE TO QUERY: The patient received Tylenol No. 3 for uterine cramping due to diagnosis of . DICTATING PHYSICIAN: LEAH ALEXANDER M.D. [id number] PHY#: [id number] ID: [id number] JOB#: [id number] ACCT: [id number] cc:LEAH ALEXANDER M.D. >
== END 2016-11-17 14:39 | disposition home or self-care (01) | DRG 775 ==
LOC: LC 08:22 → LR 10:06 → 2S 11-16 02:40
PROVIDERS: ADMIT Obstetrics & Gynecology; ATTEND Obstetrics & Gynecology
PROC: 10E0XZZ Delivery of Products of Conception, External Approach (ICD-10-PCS; principal; 2016-11-15)
PROC: 0KQM0ZZ Repair Perineum Muscle, Open Approach (ICD-10-PCS; 2016-11-15)
PROC: 10907ZC Drainage of Amniotic Fluid, Therapeutic from Products of Conception, Via Natural or Artificial Opening (ICD-10-PCS; 2016-11-15)
PROC: 4A1HXCZ Monitoring of Products of Conception, Cardiac Rate, External Approach (ICD-10-PCS; 2016-11-15)
DX: O48.0 Post-term pregnancy (principal); O70.1 Second degree perineal laceration during delivery; L50.9 Urticaria, unspecified; O76 Abnormality in fetal heart rate and rhythm complicating labor and delivery; O9A.23 Injury, poisoning and certain other consequences of external causes complicating the puerperium; T40.2X5A Adverse effect of other opioids, initial encounter; Z3A.41 41 weeks gestation of pregnancy; Z37.0 Single live birth
CPT/HCPCS: 36415; 80307; 81005; 85025; 85027; 86592; 86850; 86900; 86901; 88307; 94760; 99465; J2300; J2370; J2550; J2590; J3010; J3490